=== PATIENT | female | born 1950 | race Hispanic/Latino ===

== ENCOUNTER 2018-07-08 17:48 | Emergency (ER) | payer BC, OTHER ==
[~2018-07-08] VITALS: Ht 154.9 cm; Wt 101.6 kg
[~2018-07-08 17:48] MED LIST: ASPIR 8181 MG PO; CRESTOR10 MG PO; LANTUS100 UNITS/ SQ; LEVOTHYROXINE25 MCG PO; LISINOPRIL2.5 MG PO; LISINOPRIL20 MG PO; METFORMIN HCL1000 MG PO; METOPROLOL SUCC25 MG PO; NOVOLIN 70100 UNITS/ SQ; PANTOPRAZOLE SO40 MG PO; ROPINIROLE HC0.25 MG; SYNTHROID125 MCG PO
--- OUTSIDE RECORDS SUMMARY | 2018-07-08 17:51 | XMS REPORT | Clinical Summary ---
Author [facility] Address Unknown Phone Unavailable Care Team Providers Care Art Therapist Name Role Phone Rochelle Ventura [facility] PCP Allergies Comments Active Allergy Reactions Severity Noted Date cream Thimerosal Rash Low 07/30/2012 Cream. Please note: patient has tolerated steroid shots before (solumedrol and betamethasone) Tixocortol Pivalate Rash Low 07/30/2012 Medications End Date Status Medication Sig Dispensed Refills Start Date Active insulin glargine (LANTUS) Inject 50 0 100 unit/mL injection Units subcutaneousl y nightly. Use as directed Active metFORMIN (FORTAMET) 1000 Take 1,000 mg 0 MG (OSM) 24 hr tablet by mouth 2 (two) times daily with breakfast and dinner. Active ACCU-CHEK SMARTVIEW Strp 0 4 Active ACCU-CHEK FASTCLIX Misc 0 4 Active insulin aspart (NOVOLOG) Inject 15 0 100 unit/mL InPn Units subcutaneousl y daily before lunch. Active furosemide (LASIX) 20 MG Take 1 tablet 30 tablet 3 tabletIndications: (20 mg total) 5 Bilateral edema of lower by mouth 2 extremity (two) times daily. Active insulin pen needles (BD Use as 100 each 0 ULTRA-FINE MAURICIO) 4 mm x directed. 6 32 G Dispense as written, do not substitute. Brand medically necessary. . Active SYNTHROID 125 mcg tablet TAKE 1 TABLET 90 tablet 0 DAILY 6 Active CRESTOR 5 mg tablet TAKE 1 TABLET 90 tablet 0 DAILY 6 Active metoprolol (TOPROL-XL) 25 TAKE 1 TABLET 90 tablet 3 MG 24 hr tablet DAILY 6 Active lisinopril-hydrochlorothi TAKE 1 TABLET 30 tablet 0 azide DAILY 6 (PRINZIDE,ZESTORETIC) 20-12.5 mg per tablet Active aspirin 81 MG EC tablet Take 81 mg by 0 mouth daily. Active iron, carbonyl (FEOSOL) Take by 0 45 mg Tab tablet mouth. Active cholestyramine sugar-free Take 1 packet 60 packet 11 (PREVALITE) 4 gram PwPk by mouth 2 7 packet (two) times daily. Active Problems Problem Noted Date Lumbar back pain with radiculopathy affecting right lower extremity 02/26/2017 Sacroiliitis 02/22/2016 Spondylolisthesis, lumbar region 02/22/2016 Antiphospholipid antibody positive 10/04/2015 Overview: Per Dr. Kemp - recommends to get prophylatic anticoagulation for prolonged immobiliaztion and or post op Essential hypertension 08/28/2015 Restless leg 08/28/2015 Hypothyroidism 08/28/2015 Overview: UPDATED BY ICD10 SNOMED/IMO UPDATES Gastroesophageal reflux disease without esophagitis 08/28/2015 Iron deficiency anemia 08/28/2015 Leg swelling 03/14/2015 Bilateral edema of lower extremity 03/14/2015 Diabetes (J. Figueroa) 12/09/2014 Diabetic peripheral neuropathy associated with type 2 diabetes mellitus 10/21/2013 Status post lumbar surgery 10/21/2013 Lumbar disc disease with radiculopathy 07/07/2013 BMI 40.0-44.9, adult 05/06/2013 S/P cholecystectomy Sleep apnea Overview: on CPAP, last sleep apnea test in 2002. Encounters Care Team Description Date Type Specialty Lisandra Ragland MD Type 2 diabetes mellitus with hyperglycemia, unspecified whether terminal operations supervisor insulin use (HCC) (Primary Dx); Mixed hyperlipidemia; Iatrogenic hypothyroidism; Edema, unspecified type; Obesity, unspecified classification, unspecified obesity type, unspecified whether serious comorbidity present; Other fatigue; Screening for osteoporosis 12/01/2017 Orders Only Lab after 07/07/2017 Immunizations Name Dates Previously Given Next Due Influenza TIV (IM) 01/17/2015 Pneumococcal 12/10/2011 Polysaccharide (Pneumovax) SHINGLES VARICELLA 12/09/2014 (ZOSTAVAX) ZOSTER Tdap 12/09/2014 Family History Medical History Relation Name Comments Breast cancer Mother Diabetes Mother Heart disease Mother Hyperlipidemia Sister Relation Name Status Comments Father Mother Sister Social History Date Tobacco Use Types Packs/Day Years Used Never Smoker Smokeless Tobacco: Never Used Alcohol Use Drinks/Week oz/Week Comments No Sex Assigned at Date Recorded Not on file Industry Job Start Date Occupation Not on file Not on file Not on file Travel End Travel History Travel Start No recent travel history available. Last Filed Vital Signs Not on file Plan of Treatment Health Maintenance Due Date Last Done Comments INFLUENZA VACCINE 02/16/2018 Implants Device Identifier Shelf Expiration Date Model / Serial / Lot Implanted Type Area Manufactur er 12/30/2014 [id number] / [id number] / Dbx Putty,5cc Aseptic - Bone N/A: Spine [id number] Lumbar Implanted: Qty: 1 on 07/07/2013 by Josué Matos MD 07/17/2015 [id number] / / [id number] Sealant,Floseal Hemostatic Matrix Cement/Emigdio N/A: Spine 10ml - [id number] ler/Adhesi Lumbar Implanted: Qty: 1 on 07/07/2013 by Josué Alberto MD [id number] / / [id number] Screw, Cortical Cancellous Fracture/F N/A: Spine Multiaxial 5.5x45mm Cocr Solera - ixation Lumbar [id number] Implanted: Qty: 4 on 07/07/2013 by Josué Matos MD [id number] / / [id number] Set Screw,Breakoff 4.75mm Tit Fracture/F N/A: Spine Sextant - [id number] ixation Lumbar Implanted: Qty: 2 on 07/07/2013 by Josué Matos MD [id number] / / [id number] Amadou, Spinal 4.83h88gn Cocr Sextant Spine N/A: Spine - [id number] Lumbar Implanted: Qty: 1 on 07/07/2013 by Josué Matos MD 08/24/2018 [id number] / / [id number] Cage,Vertebral Interbody Peek Spine N/A: Spine Capstone Verte-Stack [id number] - Lumbar [id number] Implanted: Qty: 1 on 07/07/2013 by Josué Matos MD [id number] / / [id number] Amadou, Sextant, 30mm X 1 N/A: Spine Implanted: Qty: 1 on 07/07/2013 by Josué Harrison MD Procedures Comments Procedure Name Priority Date/Time Associated Diagnosis T3 Routine 12/01/2017 Type 2 diabetes mellitus 8:15 AM CDT with hyperglycemia, unspecified whether long-term insulin use (HCC) Mixed hyperlipidemia Iatrogenic hypothyroidism Edema, unspecified type Obesity, unspecified classification, unspecified obesity type, unspecified whether serious comorbidity present Other fatigue Screening for osteoporosis T4, FREE Routine 12/01/2017 Type 2 diabetes mellitus 8:15 AM CDT with hyperglycemia, unspecified whether terminal operations supervisor insulin use (HCC) Mixed hyperlipidemia Iatrogenic hypothyroidism Edema, unspecified type Obesity, unspecified classification, unspecified obesity type, unspecified whether serious comorbidity present Other fatigue Screening for osteoporosis TSH Routine 12/01/2017 Type 2 diabetes mellitus 8:15 AM CDT with hyperglycemia, unspecified whether terminal operations supervisor insulin use (HCC) Mixed hyperlipidemia Iatrogenic hypothyroidism Edema, unspecified type Obesity, unspecified classification, unspecified obesity type, unspecified whether serious comorbidity present Other fatigue Screening for osteoporosis after 07/07/2017 Results * T3 (12/01/2017 8:15 AM CDT) T3, Total 65 48 - 159 ng/dL [facility] Specimen Blood Performing Organization Address City/[facility] [place] [address] [facility] * TSH (12/01/2017 8:15 AM CDT) TSH 0.23 (L) 0.35 - 4.94 uIU/mL [facility] Specimen Blood Performing Organization Address City/[facility]/Zipcode Phone Number [address] [address] [facility] * T4, free (12/01/2017 8:15 AM CDT) Free T4 1.03 0.70 - 1.48 ng/dL [facility] Specimen Blood Performing Organization Address City/[facility]/Zipcode Phone Number [facility] [address] [place] [address] [facility] after 07/07/2017 Insurance Payer Benefit Subscriber ID Type Phone Address Plan / Group CIGNA - [place]GD CARE CIGNA xxxxxxxxxxx HMO/POS HMO/POS/OP EN ACCESS CIG[employer] - [place] CARE CIGNA PPO xxxxxxxxxxx PPO Advance Directives For more information, please contact: [facility] [address] [place], [place] [id number] Date Inactivated Comments Code Status Date Activated 03/01/2017 3:25 PM Full Code 02/26/2017 11:35 PM This code status was determined by: Patient 02/22/2016 9:45 AM Full Code 02/22/2016 5:57 AM This code status was determined by: Patient 07/11/2013 4:15 PM All possible means of support including;cardiac massage, mechanical ventilation, and defibrillation will be used to support life. Code ONE 07/07/2013 9:02 AM
--- OUTSIDE RECORDS SUMMARY | 2018-07-08 17:51 | XMS REPORT ---
Author Author [facility] Address Unknown Phone Unavailable Care Team Providers Care Lining Caser Name Role Phone KHRIS, PAT MATTHEWSINA Unavailable Unavailable Karli JERNIGAN Unavailable Unavailable JOHN LIU Unavailable Unavailable TUNDE ROB Unavailable Unavailable Kamaljit DEE Unavailable Unavailable Problems This patient has no known problems. Allergies, Adverse Reactions, Alerts This patient has no known allergies or adverse reactions. Medications This patient has no known medications. Results Test Description Test Time Test Comments Text Results Atomic Results Result Comments TSH 2017-12-01 12:03:00 THYROID STIMULATING HORMONE (BEAKER) (test tdsv=185) 0.23 uIU/mL 0.35-4.94 T4, [id number] 12:01:00* Test Item Value Reference Range Comments FREE T4 (BEAKER) (test cvyd=617) 1.03 ng/dL 0.70-1.48 [id number] 12:01:00* Test Item Value Reference Range Comments T3 TOTAL (BEAKER) (test yort=203) 65 ng/dL 48-159 MR, SPINE, THORACIC, WITHOUT [id number] 11:02:00FINAL REPORT MRI thoracic spine without contrast 05/01/2017 at 1048. CLINICAL HISTORY: Thoracic spine pain, fall. TECHNIQUE: Noncontrast MRI of the thoracic spine was performed, utilizing sagittal T1, T2, STIR, axial T1 and T2-weighted sequences. COMPARISON: 07/16/2012. FINDINGS: Alignment is satisfactory. There is no fracture or subluxation. Bone marrow signal intensity is unremarkable. The spinal cord is normal in size and signal intensity. The spinal canal is of normal diameter. There are mild degenerative changes involving the i ntervertebral disks and facet joints, without central canal or foraminal stenosi s. The paraspinal soft tissue is unremarkable. IMPRESSION: 1. No fracture or mal alignment.2. Mild chronic degenerative changes, without central canal or foramin al compromise. Signed: Abel Jones Verified Date/Time: 05/01/2017 11:02:16 Reading Location: [facility] C013V Neuro Reading Room Electronically sig lupe by: ABEL JONES M.D. on 05/01/2017 11:02 AM POCT-GLUCOSE METER 2017-04-15 08:06:00* Test Item Value Reference Range Comments POC-GLUCOSE METER (BEAKER) (test zljr=1007) 93 mg/dL 70-110 TESTED AT [facility] [address], LEAD NUCLEAR MEDICINE TECHNOLOGIST IN OR/30 MINUTE [id number] 16:42:00Reason for exam:-> L5,S1 transforaminal epidural injectionFINAL REPORT Fluoroscopic images were acquired for procedural assistance. Fluoroscopy time 0.5 minutes. Fluoroscopic images 3. Fluoroscopic guidance for lumbar transforaminal epidural injections. Because images were not submitted for interpretation, see separate report by the referring physician for clinical details and imaging interpretation. Signed: Edwar Lomax Verified Date/Time: 03/28/2017 16:42:00 Reading Location: [address] Radiology Reading Room Electronically signed by: EDWAR LOMAX M.D. on 04:42 PM POCT-GLUCOSE [id number] 07:38:00* Test Item Value Reference Range Comments POC-GLUCOSE METER (BEAKER) (test orjx=2601) 104 mg/dL 70-110 TESTED AT [facility] [address] [facility] [address] RAD, BONE DENSITY [id number] 14:46:00Reason for Exam:->e11.65Reason for Exam:->z13.820[facility] Mineral Density Date: March 05, 2017 Comparison: March 02, 2015 Clinical History: Osteoporosis Screening Report: Bone Mineral Density Measurement: Lumbar Spine: 1.595 gm/hq6Gpza Femoral Neck: 0.934 gm/cm2 Standard Deviation as compared to the young adult population (T -score) Lumbar Spine: 3.5 Mean Femoral Neck: -0.7 Standard Deviation as compared to the age matched controls (Z-score) Lumbar Spine: 4.7Mean Femoral Neck: 0.5 These findings are consistent with a normal bone mineral density of the lumbar spine. There is no increased risk of an osteoporotic fracture of the lumbar spine as compared to the young adult population. These findings are consistent with a normal bone mineral density of the femoral neck . There is no increased risk of an osteoporotic fracture of the femoral neck as compared to the young adult [facility]. Comment: Computer printout from the exam will follow this report.Postope rative changes are visualized with pedicle screws overlying the lower lumbar spi ne. Signed: Zuleyka Hinojosa MDReport Verified Date/Time: 03/05/2017 14:46:32 [place] Location: [address] Radiology Reading Room -GLUCOSE [id number] 08:03:00* Test Item Value Reference Range Comments POC-GLUCOSE METER (BEAKER) (test kyfu=5162) 110 mg/dL 70-110 TESTED AT [address] [address] POCT-GLUCOSE [id number] 21:00:00* Test Item Value Reference Range Comments POC-GLUCOSE METER (BEAKER) (test kiem=7629) 133 mg/dL 70-110 TESTED AT [address] [address] POCT-GLUCOSE [id number] 18:11:00* Test Item Value Reference Range Comments POC-GLUCOSE METER (BEAKER) (test tfop=1562) 277 mg/dL 70-110 TESTED AT [address] [address] POCT-GLUCOSE [id number] 13:24:00* Test Item Value Reference Range Comments POC-GLUCOSE METER (BEAKER) (test qrfl=3686) 148 mg/dL 70-110 TESTED AT [address] [address] POCT-GLUCOSE [id number] 07:41:00* Test Item Value Reference Range Comments POC-GLUCOSE METER (BEAKER) (test spjl=4936) 123 mg/dL 70-110 TESTED AT [address] [address] BASIC METABOLIC [id number] 04:58:00* Test Item Value Reference Range Comments SODIUM (BEAKER) (test ppwx=873) 139 meq/L 136-145 POTASSIUM (BEAKER) (test uxzx=772) 4.1 meq/L 3.5-5.1 CHLORIDE (BEAKER) (test gali=737) 105 meq/L 98-107 CO2 (BEAKER) (test oxif=038) 26 meq/L 22-29 BLOOD UREA NITROGEN (BEAKER) (test oixv=766) 43 mg/dL 7-21 CREATININE (BEAKER) (test blpq=255) 0.87 mg/dL 0.57-1.25 GLUCOSE RANDOM (BEAKER) (test hyan=964) 121 mg/dL 70-105 CALCIUM (BEAKER) (test upqw=685) 8.7 mg/dL 8.4-10.2 EGFR (BEAKER) (test bvao=1098) 65 mL/min/1.73 sq m ESTIMATED GFR IS NOT ACCURATE CREATININE CLEARANCE IN PREDICTING GLOMERULAR FILTRATION RATE. ESTIMATED GFR IS NOT APPLICABLE FOR DIALYSIS PATIENTS. 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 The alignment is anatomic. No defini te evidence of acute cortical interruption. However, there is gentle bowing of t he proximal diaphysis of the fibula on the lateral view. Chronicity and clinical significance indeterminate. Recommend clinical correlation with patient's point of maximum tenderness and mechanism of injury as an acute process is difficult to exclude. Subtle soft tissue fullness of the suprapatellar space may reflect a rtifact or a knee effusion. Signed: Terry Saavedra MDReport Verified Date/Time: 02/27/2017 20:59:28 Reading Location: [address] Reading Room , HIP, 2 VIEWS, [id number] 20:56:00Reason for exam:->pain post fallFINAL REPORT EXAMINATION: RIGHT HIP SERIES, 2 VIEWS INDICATION: PAIN, FALL IMPRESSION: Moderate degenerative changes are noted at the right sacroiliac joint and the right hip. Incompletely visualized orthopedic fixation hardware is noted in the lower lumbar spine. No definite evidence of acute fracture or dislocation. If occult injury is suspected, consider CT for further evaluation. Signed: Terry Saavedra Verified Date/Time: 02/27/2017 20:56:09 Reading Location: [address] Reading Room -GLUCOSE [id number] 20:54:00 * Test Item Value Reference Range Comments POC-GLUCOSE METER (BEAKER) (test tdre=7564) 258 mg/dL 70-110 TESTED AT [address] [address] POCT-GLUCOSE [id number] 17:39:00* Test Item Value Reference Range Comments POC-GLUCOSE METER (BEAKER) (test tbqj=0523) 182 mg/dL 70-110 TESTED AT [address] [address] HEMOGLOBIN [id number] 12:54:00* Test Item Value Reference Range Comments HEMOGLOBIN A1C (BEAKER) (test aogo=585) 6.5 % 4.3-6.1 POCT-GLUCOSE [id number] 12:37:00* Test Item Value Reference Range Comments POC-GLUCOSE METER (BEAKER) (test eyrn=2340) 228 mg/dL 70-110 TESTED AT [address] [address] POCT-GLUCOSE [id number] 08:02:00* Test Item Value Reference Range Comments POC-GLUCOSE METER (BEAKER) (test buec=3460) 213 mg/dL 70-110 TESTED AT [address] [address] POCT-GLUCOSE [id number] 01:26:00* Test Item Value Reference Range Comments POC-GLUCOSE METER (BEAKER) (test zwvf=6635) 273 mg/dL 70-110 TESTED AT [place] [id number] URINALYSIS W/ [id number] 23:27:00* Test Item Value Reference Range Comments COLOR (BEAKER) (test xsvr=312) Yellow CLARITY (BEAKER) (test hsho=101) Hazy SPECIFIC GRAVITY UA (BEAKER) (test sbmo=000) 1.028 1.001-1.035 PH UA (BEAKER) (test bbeo=980) 5.5 5.0-8.0 PROTEIN UA (BEAKER) (test kgbc=546) 30 mg/dL Negative GLUCOSE UA (BEAKER) (test plgu=064) 150 mg/dL Negative KETONES UA (BEAKER) (test eoxf=943) 10 mg/dL Negative BILIRUBIN UA (BEAKER) (test vfly=720) Negative Negative BLOOD UA (BEAKER) (test hark=101) Negative Negative NITRITE UA (BEAKER) (test rqwr=261) Negative Negative LEUKOCYTE ESTERASE UA (BEAKER) (test dhbm=147) Negative Negative UROBILINOGEN UA (BEAKER) (test yzfy=937) 0.2 mg/dL 0.2-1.0 RBC UA (BEAKER) (test qxqu=244) 0 /HPF WBC UA (BEAKER) (test ukzk=364) 1 /HPF MUCUS (BEAKER) (test hwps=8379) Many SQUAMOUS EPITHELIAL (BEAKER) (test ustd=756) 2 /HPF SOURCE(BEAKER) (test dwba=5180) Urine, Voided MR, SPINE, LUMBAR, [id number] 11:55:00FINAL REPORT MR Lumbar spine with and without contrast INDICATION: Low back pain, rapidly progressive neurologic deficit. TECHNIQUE: MRI of the lumbar spine utilizing the following sequences: Sagittal T1, T2, STIR; axial T1 and T2, postcontrast sagittal and axial T1 with fat suppression. COMPARISON: CT lumbar spine 08/15/2016, MRI lumbar spine 11/08/2013 FINDINGS:There is transitional lumbosacral anatomy. For consistency, numbering is based on the prior studies. There has been L4-5 posterior spinal fusion with rods and screws. An anterior intervertebral graft is present at L4-5. There are resultant susceptibility artifact. There is grade 1 anterolisthesis at L5-S1, stable since the prior CT, but new since 2013. There are degenerative endplate signal changes. There is m ild left convex spine curvature. Vertebral heights are otherwise maintained. The conus medullaris is unremarkable and terminates at L1-2. T12-L1: Unremarkable L 1-2: Mild facet arthropathy. No significant canal or foraminal stenosis. L2-3: L eft foraminal annular tear and broad based disc protrusion. Bilateral facet arth ropathy with myelomatous thickening. No significant canal or foraminal stenosis. . L3-4: Disc bulge, broad-based right foraminal disc protrusion, bilateral facet arthropathy, ligamentous thickening, and small joint effusions. Mild canal sten osis. Mild to moderate right and mild left foraminal stenosis. L4-5: Status post left laminectomy and fusion with left lateral recess and foraminal granulation changes but no significant canal stenosis. Mild to moderate left and mild right foraminal stenosis. L5-S1: Disc degeneration with bulge extending into the colin inal regions, endplate osteophytes, facet arthropathy, and ligamentous thickenin g. Severe bilateral foraminal stenosis with exiting nerve root impingement. No s ignificant canal stenosis. There is colonic diverticulosis. There is paraspinal muscle deconditioning. IMPRESSION: 1. Transitional lumbosacral anatomy. 2. Prior L4-5 spinal fusion with granulation changes. 3. Left foraminal annular tear and broad based disc protrusion at L2-3. Additional degenerative changes with mild multifactorial L3-4 spinal canal stenosis. 4. Severe bilateral L5-S1 foraminal s tenoses, with other lesser foraminal stenoses as discussed. Advise correlation w ith radiculopathic symptoms. 5. Colonic diverticulosis. Signed: Florentino Paredes MDReport Verified Date/Time: 02/26/2017 11:55:27 Reading Location: [address] Neuro Reading Room Electronically signed by: Belinda MONZON 02/26/2017 11:55 AM BASIC METABOLIC [id number] 10:35:00* Test Item Value Reference Range Comments SODIUM (BEAKER) (test lfmp=007) 141 meq/L 136-145 POTASSIUM (BEAKER) (test qkxe=072) 4.2 meq/L 3.5-5.1 CHLORIDE (BEAKER) (test nepl=848) 104 meq/L 98-107 CO2 (BEAKER) (test utsv=548) 27 meq/L 22-29 BLOOD UREA NITROGEN (BEAKER) (test esrg=627) 30 mg/dL 7-21 CREATININE (BEAKER) (test syvq=800) 0.81 mg/dL 0.57-1.25 GLUCOSE RANDOM (BEAKER) (test jpyp=295) 112 mg/dL 70-105 CALCIUM (BEAKER) (test oswo=055) 9.7 mg/dL 8.4-10.2 EGFR (BEAKER) (test vkiv=7076) 71 mL/min/1.73 sq m ESTIMATED GFR IS NOT ACCURATE CREATININE CLEARANCE IN PREDICTING GLOMERULAR FILTRATION RATE. ESTIMATED GFR IS NOT APPLICABLE FOR DIALYSIS PATIENTS. CBC W/PLT COUNT & AUTO [id number] 10:03:00* Test Item Value Reference Range Comments WHITE BLOOD CELL COUNT (BEAKER) (test ozhk=419) 7.0 K/ L 3.5-10.5 RED BLOOD CELL COUNT (BEAKER) (test aqfe=317) 4.46 M/ L 3.93-5.22 HEMOGLOBIN (BEAKER) (test kixo=970) 13.1 GM/DL 11.2-15.7 HEMATOCRIT (BEAKER) (test ocdh=641) 40.1 % 34.1-44.9 MEAN CORPUSCULAR VOLUME (BEAKER) (test hylm=458) 89.9 fL 79.4-94.8 MEAN CORPUSCULAR HEMOGLOBIN (BEAKER) (test hdpa=670) 29.4 pg 25.6-32.2 MEAN CORPUSCULAR HEMOGLOBIN CONC (BEAKER) (test jffm=575) 32.7 GM/DL 32.2-35.5 RED CELL DISTRIBUTION WIDTH (BEAKER) (test aodw=266) 13.2 % 11.7-14.4 PLATELET COUNT (BEAKER) (test vxmc=443) 173 K/CU MM 150-450 MEAN PLATELET VOLUME (BEAKER) (test bgwu=113) 10.2 fL 9.4-12.3 NUCLEATED RED BLOOD CELLS (BEAKER) (test tokt=223) 0 /100 WBC 0-0 NEUTROPHILS RELATIVE PERCENT (BEAKER) (test nyka=177) 59 % LYMPHOCYTES RELATIVE PERCENT (BEAKER) (test vbgf=570) 33 % MONOCYTES RELATIVE PERCENT (BEAKER) (test yhvr=369) 7 % EOSINOPHILS RELATIVE PERCENT (BEAKER) (test tymw=309) 1 % BASOPHILS RELATIVE PERCENT (BEAKER) (test xjbv=227) 0 % NEUTROPHILS ABSOLUTE COUNT (BEAKER) (test qhmz=567) 4.10 K/ L 1.56-6.13 LYMPHOCYTES ABSOLUTE COUNT (BEAKER) (test shad=656) 2.28 K/ L 1.18-3.74 MONOCYTES ABSOLUTE COUNT (BEAKER) (test ouyi=556) 0.49 K/ L 0.24-0.36 EOSINOPHILS ABSOLUTE COUNT (BEAKER) (test ntww=291) 0.10 K/ L 0.04-0.36 BASOPHILS ABSOLUTE COUNT (BEAKER) (test yxij=409) 0.03 K/ L 0.01-0.08 IMMATURE GRANULOCYTES-RELATIVE PERCENT (BEAKER) (test ytjk=7551) 0 % 0-1 RAPID [id number] 13:37:00* Test Item Value Reference Range Comments RAPID CKMB (BEAKER) (test aqwz=1796) 1.0 ng/mL 0.0-4.3 RAPID TROPONIN [id number] 13:37:00* Test Item Value Reference Range Comments RAPID TROPONIN I (BEAKER) (test msvh=7979) < ng/mL <0.05 BASIC METABOLIC [id number] 13:26:00* Test Item Value Reference Range Comments SODIUM (BEAKER) (test mxjq=111) 144 meq/L 135-148 POTASSIUM (BEAKER) (test koge=334) 4.9 meq/L 3.6-5.5 CHLORIDE (BEAKER) (test lnfg=067) 102 meq/L 98-106 CO2 (BEAKER) (test yxqs=446) 29 meq/L 24-32 BLOOD UREA NITROGEN (BEAKER) (test risr=370) 26 mg/dL 10-26 CREATININE (BEAKER) (test brhc=131) 0.73 mg/dL 0.50-1.20 GLUCOSE RANDOM (BEAKER) (test qkif=315) 160 mg/dL 70-110 CALCIUM (BEAKER) (test gumh=970) 9.7 mg/dL 8.5-10.5 EGFR (BEAKER) (test rbgf=0537) 80 mL/min/1.73 sq m ESTIMATED GFR IS NOT ACCURATE CREATININE CLEARANCE IN PREDICTING GLOMERULAR FILTRATION RATE. ESTIMATED GFR IS NOT APPLICABLE FOR DIALYSIS PATIENTS. CBC W/PLT COUNT & AUTO [id number] 13:20:00* Test Item Value Reference Range Comments WHITE BLOOD CELL COUNT (BEAKER) (test osui=039) 7.0 10e3/ L 4.0-10.0 RED BLOOD CELL COUNT (BEAKER) (test nmej=426) 4.41 10e6/ L 4.00-5.00 HEMOGLOBIN (BEAKER) (test syab=174) 13.1 g/dL 12.0-15.0 HEMATOCRIT (BEAKER) (test shio=401) 39.4 % 36.0-45.0 MEAN CORPUSCULAR VOLUME (BEAKER) (test hptz=540) 89.3 fL 82.0-99.0 MEAN CORPUSCULAR HEMOGLOBIN (BEAKER) (test iich=428) 29.7 pg 27.0-33.0 MEAN CORPUSCULAR HEMOGLOBIN CONC (BEAKER) (test bslk=081) 33.3 g/dL 32.0-36.0 RED CELL DISTRIBUTION WIDTH (BEAKER) (test gvfh=077) 11.4 % 10.3-14.2 PLATELET COUNT (BEAKER) (test pzox=696) 188 10e3/ L 150-430 MEAN PLATELET VOLUME (BEAKER) (test miib=850) 7.6 fL 6.5-10.5 NEUTROPHILS RELATIVE PERCENT (BEAKER) (test hsjs=955) 59 % LYMPHOCYTES RELATIVE PERCENT (BEAKER) (test wfbl=895) 33 % MONOCYTES RELATIVE PERCENT (BEAKER) (test ontr=655) 7 % EOSINOPHILS RELATIVE PERCENT (BEAKER) (test iywq=401) 2 % BASOPHILS RELATIVE PERCENT (BEAKER) (test doko=429) 0 % NEUTROPHILS ABSOLUTE COUNT (BEAKER) (test hbvu=996) 4.09 10e3/ L 1.80-8.00 LYMPHOCYTES ABSOLUTE COUNT (BEAKER) (test njmx=902) 2.26 10e3/ L 1.48-4.50 MONOCYTES ABSOLUTE COUNT (BEAKER) (test mpwc=589) 0.47 10e3/ L 0.00-1.30 EOSINOPHILS ABSOLUTE COUNT (BEAKER) (test jzcu=581) 0.10 10e3/ L 0.00-0.50 BASOPHILS ABSOLUTE COUNT (BEAKER) (test tyyy=829) 0.02 10e3/ L 0.00-0.20
--- OUTSIDE RECORDS SUMMARY | 2018-07-08 17:51 | XMS REPORT | Clinical Summary ---
Author Author Adolph Protestant Organization [facility] Address Unknown Phone Unavailable Care Team Providers Care Perfusionist Name Role Phone Rochelle Ventura MD PCP Allergies Comments Active Allergy Reactions Severity Noted Date Thimerosal 01/17/2016 Tixocortol Pivalate 01/17/2016 Medications End Date Status Medication Sig Dispensed Refills Start Date Active lisinopril-hydrochlorothi 1 tablet. 0 azide (PRINZIDE,ZESTORETIC) 20-12.5 mg per tablet Active rosuvastatin (CRESTOR) 5 1 TABLET 0 MG tablet DAILY 1 Active metFORMIN (GLUCOPHAGE) metformin ER 0 500 MG tablet 500 mg tablet,extend ed release 24 hr Active pen needle, diabetic (BD BD Insulin 0 INSULIN PEN NEEDLE UF Pen Needle UF MINI) 31 gauge x 3/16" Mini 31 gauge needle x 3/16" Active esomeprazole (NexIUM) 40 esomeprazole 0 MG capsule magnesium 40 mg capsule,delay ed release Active meclizine (ANTIVERT) 25 meclizine 25 0 mg tablet mg tablet Active liraglutide (VICTOZA Inject 1.8 mg 0 2-JAXSON) 0.6 mg/0.1 mL (18 under the 4 mg/3 mL) pen injector skin. Active levothyroxine (SYNTHROID) TAKE 1 TABLET 0 125 MCG tablet DAILY 6 Active lidocaine (LIDODERM) 5 APPLY ONE 30 patch 0 %Indications: PATCH 7 Spondylolisthesis of TOPICALLY lumbar region DAILY. REMOVE AND DISCARD PATCH WITHIN 12 HOURS OR DIRECTED 04/30/2018 Discontinued metoprolol succinate XL metoprolol 0 (TOPROL-XL) 25 MG 24 hr succinate ER tablet 25 mg tablet,extend ed release 24 hr 04/30/2018 Discontinued insulin ASPART (NovoLOG Novolog 0 Flexpen) 100 unit/mL Flexpen 100 insulin pen unit/mL subcutaneous 04/30/2018 Discontinued ioeazkef-kqcfdpulg-fyskks naproxen 500 0 l 500 mg -0.0375 %-5 % mg tablet combo pack, tablet and patch 04/30/2018 Discontinued pregabalin (LYRICA) 50 MG Lyrica 50 mg 0 capsule capsule 04/30/2018 Discontinued rOPINIRole (REQUIP) 0.5 ropinirole 0 MG tablet 0.5 mg tablet 04/30/2018 Discontinued insulin GLARGINE (LANTUS) Inject 50 0 100 unit/mL injection Units under the skin. 04/30/2018 Discontinued FERRALET 90 DUAL-IRON 0 DELIVERY 90-1-12-50 6 ht-my-prm-mg tablet 06/24/2018 meloxicam (MOBIC) 15 mg Take 1 tablet 30 tablet 3 tablet (15 mg total) 9 by mouth daily for 30 days. Take with food Active Problems Problem Noted Date Bilateral carpal tunnel syndrome 04/30/2018 De Quervain's tenosynovitis, right 04/30/2018 Sleep apnea Encounters Care Team Description Date Type Specialty Yogesh Beard MD De Quervain's tenosynovitis, right (Primary Dx); Bilateral carpal tunnel syndrome 05/25/2018 Office Visit Orthopedic Surgery Yogesh Beard MD Bilateral carpal tunnel syndrome (Primary Dx); De Quervain's tenosynovitis, right 04/30/2018 Office Visit Orthopedic Surgery after 07/07/2017 Social History Date Tobacco Use Types Packs/Day Years Used Never Smoker Sex Assigned at Date Recorded Not on file Industry Job Start Date Occupation Not on file Not on file Not on file Travel End Travel History Travel Start No recent travel history available. Last Filed Vital Signs Not on file Plan of Treatment Health Maintenance Due Date Last Done Comments BREAST CANCER SCREENING 12/24/2001 COLON CANCER SCREENING 12/24/2001 SHINGLES VACCINES ( of 12/24/2001 2) INFLUENZA VACCINE 12/17/2017 PNEUMOCOCCAL Completed 06/13/2011 POLYSACCHARIDE VACCINE AGE 65 AND OVER PNEUMOCOCCAL-13 Completed 12/03/2017 Procedures Comments Procedure Name Priority Date/Time Associated Diagnosis [place] INJECT TENDON Routine 05/25/2018 De Quervain's SHEATH/LIGAMENT 4:00 PM CAREER SPECIALIST tenosynovitis, right EMG Routine 05/06/2018 Bilateral carpal tunnel 1:52 PM CAREER SPECIALIST syndrome XR HANDS 3 VW BILATERAL Routine 04/30/2018 Bilateral hand pain 3:29 PM CAREER SPECIALIST after 07/07/2017 Results * Hand/Upper Extremity Injection/Arthrocentesis: R extensor compartment 1 (05/25/2018 4:00 PM CAREER SPECIALIST) Narrative Performed At Yogesh Beard MD 05/25/20185:10 PM Hand/Upper Extremity Injection/Arthrocentesis: R extensor compartment 1 Date/Time: 05/25/2018 5:09 PM Consent given by: patient Site marked: site marked Timeout: Immediately prior to procedure a time out was called to verify the correct patient, procedure, equipment, computer systems support specialist and site/side marked as required Supporting Documentation Indications: therapeutic Procedure Details Condition: de Quervain's tenosynovitis Site: R extensor compartment 1 Preparation: Patient was prepped and draped in the usual sterile fashion Right side: Needle size: 27 G Approach: medial Patient tolerance: patient tolerated the procedure well with no immediate complications Right Extensor Compartment 1 Medications administered: 3 mg betamethasone acetate & sodium phosphate 6 mg/mL; 0.5 mL lidocaine 10 mg/mL (1 %) Injection Type: tendon sheath Platelet Rich Plasma Used: no PRP Used Fluoroscopic Needle Guidance Used: no fluoroscopic needle guidance * EMG general request (05/06/2018 1:52 PM CAREER SPECIALIST) Impressions Performed At The patient has throbbing and discomfort of the right thumb joint with repetitive use of her hands.She has a history of a carpal tunnel release bilaterally 20 years ago.She comes in for an EMG study of both arms. 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 Brandon Cifuentes Department of Neurology [facility] [address] [facility] [address] [place], [place] Office: [phone] Narrative Performed At NERVE CONDUCTION AND ELECTROMYOGRAPHY REPORT [facility]th [facility]; [place], [place] [address]; Name: Isabela Bocanegra Date of Procedure: 05/06/18 Sex: female Date of : 1950 Referring Physician: Yogesh Beard MD Ht: 5 foot 2 wt: 150temp: 35.6/34.6 Nerve Conduction(Latencies in msec, Amplitudes uV, Distance cm, Velocity M/Sec) Right Motor Nerves Dist. Lat. Prox lat. D. amp. P. Amp.Dist. Velocity Right Median3.77.37.2 6.119.3 53 Right Ulnar (below elb) 2.54.38.3 8.310 57 Right Ulnar (across elb) 6.5 6.813 58 Right Radial2.86.37.4 6.418.9 53 Right Median F Wave 27 Right Ulnar F Wave 26.5 Right Sensory Nerves Dist. Lat. Prox lat. Dist. amp. Prox Amp. Distance Velocity Right Median Palmar 2.6* 308.0 Right Median Digital 3.8 10.3 13.0 Right Ulnar2.7 25 11.0 Right Super. Radial 2.3 34.3 10.0 Left Motor Nerves Dist. Lat. Prox lat. D. amp. P. Amp.Dist. Velocity Left Median3.879.3 8.319 58 Left Ulnar (below elb) 2.84.58.8 8.610.5 63 Left Ulnar (across elb) 6.4 8.313 67 Left Radial2.75.47.6 6.620 62 Left Median F Wave 27 Left Ulnar F Wave 25.5 Left Sensory Nerves Dist. Lat. Prox lat. Dist. amp. Prox Amp. Distance Velocity Left Median Palmar 2.5 * 34 8.0 Left Median Digital 3.4 17 13.0 Left Ulnar2.6 28 11.0 Left Super. Radial 2.4 30 10.0 Electromyography (Motor Unit in mV; H=High; L=Low; P=Polyphasic; NS=Non-specific) Right ArmFibs. Pos. Waves Fasc. PolyphasiaMotor UnitsRecruitment Deltoid wnl wnlwnl wnlwnlwnl Biceps wnl wnlwnl wnlwnlwnl Triceps wnl wnlwnl wnlwnlwnl Brachioradialis wnl wnlwnl wnlwnlwnl lst D. Interosseous wnl wnlwnl wnlwnlwnl Abd. Pollicus b. wnl wnlwnl wnlwnlwnl Left ArmFibs. Pos. Waves Fasc. PolyphasiaMotor UnitsRecruitment Deltoid wnl wnlwnl wnlwnlwnl Biceps wnl wnlwnl wnlwnlwnl Triceps wnl wnlwnl wnlwnlwnl Brachioradialis wnl wnlwnl wnlwnlwnl lst D. 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 Performing Organization Address City/State/Zipcohi Phone Number [facility] [address] [place] [address] after 07/07/2017 Insurance Payer Benefit Subscriber ID Type Phone Address Plan / Group CIGNA CIGNA OPEN xxxxxxxxxxx O ACCESS/NET WORK (Home) [place] [address] Advance Directives Patient has advance care planning documents on file. For more information, olu lee contact: Adolph Tejada [address] [place] [address]
[2018-07-08] MEDS ORDERED: MORPHINE SULFATE 2 MG/ML SYR 1ML IV STA (17:59)
[2018-07-08] MEDS ORDERED: SODIUM CHLORIDE 0.9% 1000ML 1,000 ML IV SCH (18:00)
[2018-07-08] MEDS ORDERED: ONDANSETRON HCL INJ 2MG/ML 2ML 2 MG/ML VIAL IV ONE (18:15)
[2018-07-08] MEDS ORDERED: MORPHINE SULFATE INJ 4 MG/ML INJ 1ML IV ONE (18:15)
[2018-07-08 18:28] LABS: BASOPHILS # (AUTO) 0.1 (0.0-0.1); BASOPHILS % 0.6 % (0.0-1.0); EOSINOPHILS # (AUTO) 0.1 (0.0-0.4); EOSINOPHILS % 1.5 % (0.0-6.0); HEMATOCRIT 40.8 % (34.2-44.1); HEMOGLOBIN 13.8 g/dL (12.0-16.0); LYMPHOCYTES % 31.3 % (18.0-39.1); MEAN CORPUSCULAR HEMOGLOBIN 30.7 pg (28-32); MEAN CORPUSCULAR HGB CONC 33.8 g/dL (31-35); MEAN CORPUSCULAR VOLUME 90.7 fL (81-99); MONOCYTES # (AUTO) 0.7 (0.2-0.8); MONOCYTES % 7.6 % (4.4-11.3); NEUTROPHILS # (AUTO) 5.7 (2.1-6.9); NEUTROPHILS % 58.7 % (38.7-80.0); PLATELET COUNT 186 x10e3/uL (140-360); RED CELL DISTRIBUTION WIDTH 12.6 % (11.7-14.4)
[2018-07-08 18:35] LABS: COLOR,URINE AMBER (YELLOW)
[2018-07-08 18:36] LABS: BILIRUBIN,URINE NEGATIVE (NEGATIVE); CLARITY,URINE TURBID (CLEAR); KETONES,URINE TRACE (NEGATIVE); LEUKOCYTE ESTERASE ,URINE TRACE (NEGATIVE); NITRITE,URINE NEGATIVE (NEGATIVE); PROTEIN,URINE DIPSTICK 2+ (NEGATIVE); URINE UROBILINOGEN 0.2 mg/dL (0.2 - 1)
[2018-07-08 18:49] LABS: WBC,URINE (MAN) 0-5 /HPF (0-5)
[2018-07-08 18:50] LABS: BACTERIA,URINE MANY /HPF; EPITHELIAL CELLS,URINE FEW /LPF; RBC,URINE >50 /HPF (0-5); YEAST,URINE FEW
[2018-07-08 18:52] LABS: ALBUMIN 4.5 g/dL (3.5-5.0); ALBUMIN/GLOBULIN RATIO 1.6 (0.8-2.0); ANION GAP 17.2 mmol/L (8-16); CALCIUM 9.9 mg/dL (8.4-10.2); CREATININE, SERUM 1.15 mg/dL (0.57-1.11); MAGNESIUM 1.9 MG/DL (1.3-2.1); POTASSIUM 4.2 mmol/L (3.5-5.1)
--- NOTE | 2018-07-08 19:28 | NUR ---
RECEIVED BEDSIDE REPORT FROM CARMELA REAL DAY SHIFT NURSE.
--- NOTE | 2018-07-08 19:28 | NUR ---
Bedside rounds completed with Regina CASEY, night order selector nurse.
--- NOTE | 2018-07-08 19:48 | Diagnostic Imaging Report ---
EXAM: CT of the abdomen and pelvis WITHOUT contrast HISTORY: Right flank pain, nausea, COMPARISON: None available. TECHNIQUE: The abdomen and pelvis were scanned utilizing a multidetector helical scanner. Coronal and sagittal reformats are available. PROTOCOL: Renal colic IV CONTRAST: None, which limits sensitivity and specificity of evaluation of the soft tissues and vascular structures. ORAL CONTRAST: None, which limits sensitivity and specificity of evaluation of the bowel. [facility] DOSE: Total DLP: 430.27 mGy*cm Estimated effective dose: (DLP x 0.015 x size factor) Dose modulation, iterative reconstruction, and/or weight based adjustment of the mA/kV was utilized to reduce the radiation dose to as low as reasonably achievable. COMPLICATIONS: None FINDINGS: Beam Burton artifact related to the spine fixation hardware, limits regional evaluation. LOWER THORAX: Unremarkable. HEPATOBILIARY: No definite focal hepatic lesions. No biliary ductal dilatation. Metallic clips in the right upper quadrant of the abdomen are compatible with prior cholecystectomy. SPLEEN: No splenomegaly. PANCREAS: No focal masses or ductal dilatation. ADRENALS: The glands bilaterally appear prominent, but no discrete nodule. KIDNEYS/URETERS: Right: Perinephric fat stranding. Mild hydronephrosis and dilation of the proximal right ureter, the ureter has a curved course within the mid abdomen extending to a punctate calcification (series 3 image 81). The ureter distal to this is not well visualized. Left: No hydronephrosis or stone. PELVIC ORGANS/BLADDER: The urinary bladder is decompressed, which limits evaluation. PERITONEUM / RETROPERITONEUM: No free air or fluid. GI TRACT: Postsurgical changes of the stomach. Scattered colonic diverticuli, without evidence of acute diverticulitis. The appendix appears normal. LYMPH NODES: No pathologically enlarged lymph nodes. VESSELS: Diffuse scattered atherosclerotic vascular calcifications. BONES: Status post posterior fixation of L4-5. Apparent L5 pars interarticularis defects with grade 1 anterolisthesis of L5 on S1. SOFT TISSUES: Ventral midline fat containing hernia without associated inflammatory changes. IMPRESSION: Mild right hydronephrosis and proximal hydroureter, likely secondary to a punctate proximal ureteral stone, 1 to 2 mm. Signed by: Dr. Uriel Pacheco D.O., M.M.M. on 07/08/2018 7:44 PM
[2018-07-08] MEDS ORDERED: KETOROLAC TROMETHAMINE 30 MG/ML VIAL IV ONE (20:30)
[2018-07-08 21:20] VITALS: BP 149/72
== END 2018-07-08 22:07 | disposition home or self-care (01) ==
LOC: ER 17:48
DX: R10.11 Right upper quadrant pain (principal); R11.0 Nausea; N20.1 Calculus of ureter; I10 Essential (primary) hypertension; E11.9 Type 2 diabetes mellitus without complications; E78.5 Hyperlipidemia, unspecified; K21.9 Gastro-esophageal reflux disease without esophagitis; G89.29 Other chronic pain
CPT/HCPCS: 36415; 74176; 80053; 81001; 82150; 83690; 83735; 85025; 99284; J1885; J2270; J2405; J7030

== ENCOUNTER 2018-07-31 18:17 | Emergency (ER) | payer OTHER ==
[~2018-07-31] VITALS: Ht 154.9 cm; Wt 72.6 kg
--- OUTSIDE RECORDS SUMMARY | 2018-07-31 18:19 | XMS REPORT | Clinical Summary ---
Author Author Adolph [facility] Organization [facility] Address Unknown Phone Unavailable Care Team Providers Care Binder And Wrapper Packer Name Role Phone Rochelle Ventura MD PCP [...] 100 insulin pen unit/mL subcutaneous 04/30/2018 Discontinued ceqvdykc-cgflzrebx-sykxdy naproxen 500 0 l 500 mg -0.0375 [...] FERRALET 90 DUAL-IRON 0 DELIVERY 90-1-12-50 6 mu-ms-tfq-mg tablet 06/24/2018 meloxicam (MOBIC) 15 mg Take 1 tablet 30 tablet 3 tablet (15 mg total) 9 by mouth daily for 30 days. Take with food Active Problems Problem Noted Date Bilateral carpal tunnel syndrome 04/30/2018 De Quervain's tenosynovitis, right 04/30/2018 Sleep apnea Encounters Care Team Description Date Type Specialty Shannon Lara MD Arrived 07/27/2018 Hospital Radiology Encounter Shannon Lara MD Nephrolithiasis (Primary Dx) 07/16/2018 Office Visit Urology Shannon Lara MD 07/15/2018 Telephone Urology Shannon Lara MD Nephrolithiasis 07/13/2018 Hospital Radiology Encounter Shannon Lara MD Nephrolithiasis (Primary Dx); Right ureteral stone 07/13/2018 Office Visit Urology Yogesh Beard MD De Quervain's tenosynovitis, right (Primary Dx); Bilateral carpal tunnel syndrome 05/25/2018 Office Visit Orthopedic Surgery Yogesh Beard MD Bilateral carpal tunnel syndrome (Primary Dx); De Quervain's tenosynovitis, right 04/30/2018 Office Visit Orthopedic Surgery after 07/30/2017 Social History Date Tobacco Use Types Packs/Day Years Used Never Smoker Smokeless Tobacco: Never Used Sex Assigned at Date Recorded Not on file Industry Job Start Date Occupation Not on file Not on file Not on file Travel End Travel History Travel Start No recent travel history available. Last Filed Vital Signs Not on file Plan of Treatment Care Team Description Date Type Specialty Shannon Lara MD [address] [facility] [address] [place], [place] [id number] 09/14/2018 Ancillary Urology Procedure Shannon Lara MD [address] [facility] [address] [place], [place] [id number] 09/14/2018 Office Visit Urology Health Maintenance Due Date Last Done Comments BREAST CANCER SCREENING 12/24/2001 COLON CANCER SCREENING 12/24/2001 SHINGLES VACCINES (#1) 12/24/2001 65+ PNEUMOCOCCAL VACCINE 12/24/2016 12/03/2017, 06/13/2011 (2 of 2 - PPSV23) INFLUENZA VACCINE 12/17/2017 PNEUMOCOCCAL Completed 06/13/2011 POLYSACCHARIDE VACCINE AGE 65 AND OVER Procedures Comments Procedure Name Priority Date/Time Associated Diagnosis US RENAL Routine 07/13/2018 Nephrolithiasis 5:05 PM CLAIM MANAGER URINE CULTURE Routine 07/13/2018 Nephrolithiasis 4:06 PM CLAIM MANAGER POC URINALYSIS DIPSTICK Routine 07/13/2018 Nephrolithiasis 4:[address] ABD/PELVIC EXTERNAL Routine 07/08/2018 STUDY 7:23 PM CLAIM MANAGER NE INJECT TENDON Routine 05/25/2018 De Quervain's SHEATH/LIGAMENT 4:00 PM CLAIM MANAGER tenosynovitis, right EMG Routine 05/06/2018 Bilateral carpal tunnel 1:52 PM CLAIM MANAGER syndrome XR HANDS 3 VW BILATERAL Routine 04/30/2018 Bilateral hand pain 3:29 PM CLAIM MANAGER after 07/30/2017 Results * US Renal (07/13/2018 5:05 PM CLAIM MANAGER) Narrative Performed At EXAMINATION:US RENAL [facility] CLINICAL HISTORY:N20.0 Calculus of kidney, Renal cyst COMPARISON:None. IMPRESSION: 1.There is no hydronephrosis. There is mild right pelviectasis. A definite calyceal stone or cyst is not identified. Correlate with CT for further evaluation. 2.Renal cortical echogenicity is within normal limits. 3.Right kidney measures 9.6 x 4.8 x 5.5 cm. 4.Left kidney measures 10.1 x 4.3 x 4 cm. 5.Bladder is unremarkable. [facility]-[id number] Procedure Note Hm Interface, Radiology Results Incoming - 07/13/2018 6:48 PM CLAIM MANAGER EXAMINATION: US RENAL CLINICAL HISTORY: N20.0 Calculus of kidney, Renal cyst COMPARISON: None. IMPRESSION: 1. There is no hydronephrosis. There is mild right pelviectasis. A definite calyceal stone or cyst is not identified. Correlate with CT for further evaluation. 2. Renal cortical echogenicity is within normal limits. 3. Right kidney measures 9.6 x 4.8 x 5.5 cm. 4. Left kidney measures 10.1 x 4.3 x 4 cm. 5. Bladder is unremarkable. [facility]-[id number] Performing Organization Address [facility] Phone Number [facility] [address] [place] [address] * Urine culture (07/13/2018 4:06 PM CLAIM MANAGER) Urine culture No growth [facility] Specimen Urine Narrative Performed At Performed at:01 - [facility] [place] [facility] [address] [place], [place] [id number] Building Rental Manager: Vaughn Wolfe MD, Phone:[phone] Performing Organization Address City/[facility] Phone Number [facility] * POC urinalysis dipstick (07/13/2018 4:03 PM CLAIM MANAGER) Color urine, POC Yellow Clarity urine, POC Clear Glucose urine, POC Negative Negative Bilirubin urine, POC Negative Negative Ketones urine, POC Negative Negative Specific gravity urine, 1.020 1.005 - 1.030 POC Blood urine, POC Moderate (A) Negative pH urine, POC 5.5 5.0, 5.5, 6.0, 6.5, 7.0, 7.5, 8.0, 8.5 Protein urine, POC Negative Negative Urobilinogen urine, POC <2.0 <2.0 Nitrite urine, POC Negative Negative Leukocyte esterase urine, Negative Negative POC Specimen Urine * CT Abd/Pelvic External Study (07/08/2018 7:23 PM CLAIM MANAGER) Narrative Performed At This exam was not acquired at a Jewish facility and has not been [facility] interpreted by a Jewish Provider.The exam was imported into our imaging system for comparisons purposes. Performing Organization Address City/State/Zipcode Phone Number [facility] [address] [place] [address] * Hand/Upper Extremity Injection/Arthrocentesis: R extensor compartment 1 (05/25/2018 4:00 PM CLAIM MANAGER) Narrative Performed At Yogesh Beard MD 05/25/20185:10 PM Hand/Upper Extremity Injection/Arthrocentesis: R extensor compartment 1 Date/Time: 05/25/2018 5:09 PM Consent given by: patient Site marked: site marked Timeout: Immediately prior to procedure a time out was called to verify the correct patient, procedure, equipment, sales support coordinator and site/side marked as required Supporting Documentation [...] * EMG general request (05/06/2018 1:52 PM CLAIM MANAGER) Impressions Performed At The patient has throbbing [...] Sams M.D. Brandon Cifuentes Department of Neurology [facility] [address] Office: [phone] Narrative Performed At NERVE CONDUCTION AND ELECTROMYOGRAPHY REPORT [facility] [place]-[address] [facility]; [place], [place] [address]; Name: Isabela Bocanegra Date of Procedure: 05/06/18 [...] Hands 3 Vw Bilateral (04/30/2018 3:29 PM CLAIM MANAGER) Narrative Performed At [facility] PA, lateral, oblique [...] evidence for fracture, dislocation. Performing Organization Address City/State/[facility] Phone Number [facility] [address] [place] [address] after 07/30/2017 Insurance Payer Benefit Subscriber ID Type Phone Address Plan / Group MARIO MARTIN OPEN xxxxxxxxxxx O ACCESS/NET WORK Advance Directives Patient has advance care planning documents on file. For more information, olu lee contact: Adolph Tejada [address] [place] [address]
--- OUTSIDE RECORDS SUMMARY | 2018-07-31 18:20 | XMS REPORT | Clinical Summary ---
Author Author AB[facility]E [facility] Organization [facility] Address Unknown Phone Unavailable Care Team Providers Care Lead Web Developer Name Role Phone Rochelle Ventura [facility] PCP Allergies Comments Active Allergy [...] 2 diabetes mellitus with hyperglycemia, unspecified whether termite control service representative insulin use (HCC) (Primary Dx); Mixed hyperlipidemia; Iatrogenic hypothyroidism; Edema, unspecified type; Obesity, unspecified classification, unspecified obesity type, unspecified whether serious comorbidity present; Other fatigue; Screening for osteoporosis 12/01/2017 Orders Only Lab after 07/30/2017 Immunizations Name Dates Previously Given Next Due [...] Lot Implanted Type Area Manufactur er 12/30/2014 [id number] / [id number] / Dbx Putty,5cc Aseptic - Bone N/A: Spine [id number] Lumbar Implanted: Qty: 1 on 07/07/2013 by Josué Matos MD 07/17/2015 [id number] / / [id number] Sealant,Floseal Hemostatic Matrix Cement/Emigdio N/A: Spine 10ml - [id number] ler/Adhesi Lumbar Implanted: Qty: 1 on 07/07/2013 by Josué Alberto MD [id number] / / [id number] Screw, Cortical Cancellous Fracture/F N/A: Spine Multiaxial 5.5x45mm Cocr Solera - ixation Lumbar [id number] Implanted: Qty: 4 on 07/07/2013 by Josué Matos MD [id number] / / [id number] Set Screw,Breakoff 4.75mm Tit Fracture/F N/A: Spine Sextant - [id number] ixation Lumbar Implanted: Qty: 2 on 07/07/2013 by Josué Matos MD [id number] / / [id number] Amadou, Spinal 4.65f81px Cocr Sextant Spine N/A: Spine - [id number] Lumbar Implanted: Qty: 1 on 07/07/2013 by Josué Matos MD 08/24/2018 [id number] / / [id number] Cage,Vertebral Interbody Peek Spine N/A: Spine Capstone Verte-Stack [id number] - Lumbar [id number] Implanted: Qty: 1 on 07/07/2013 by Josué Matos MD [id number] / / [id number] Amadou, Sextant, 30mm X 1 N/A: Spine Implanted: Qty: 1 on 07/07/2013 by Josué Harrison MD Procedures Comments Procedure Name Priority Date/Time Associated Diagnosis T3 Routine 12/01/2017 Type 2 diabetes mellitus 8:15 AM CDT with hyperglycemia, unspecified whether senior care insulin use (HCC) Mixed hyperlipidemia Iatrogenic hypothyroidism Edema, unspecified type Obesity, unspecified classification, unspecified obesity type, unspecified whether serious comorbidity present Other fatigue Screening for osteoporosis T4, FREE Routine 12/01/2017 Type 2 diabetes mellitus 8:15 AM CDT with hyperglycemia, unspecified whether termite control service representative insulin use (HCC) Mixed hyperlipidemia Iatrogenic hypothyroidism Edema, unspecified type Obesity, unspecified classification, unspecified obesity type, unspecified whether serious comorbidity present Other fatigue Screening for osteoporosis TSH Routine 12/01/2017 Type 2 diabetes mellitus 8:15 AM CDT with hyperglycemia, unspecified whether termite control service representative insulin use (HCC) Mixed hyperlipidemia Iatrogenic hypothyroidism Edema, unspecified type Obesity, unspecified classification, unspecified obesity type, unspecified whether serious comorbidity present Other fatigue Screening for osteoporosis after 07/30/2017 Results * T3 (12/01/2017 8:15 AM CDT) T3, Total 65 48 - 159 ng/dL [facility] Specimen Blood Performing Organization Address City/[facility] [place] [address] [facility] * TSH (12/01/2017 8:15 AM CDT) TSH 0.23 (L) 0.35 - 4.94 uIU/mL [facility] Specimen Blood Performing Organization Address City/[facility]/Zipcode Phone Number [address] [address] [facility] * T4, free (12/01/2017 8:15 AM CDT) Free T4 1.03 0.70 - 1.48 ng/dL [facility] Specimen Blood Performing Organization Address City/[facility]/Zipcode Phone Number [facility] [address] [place] [address] [facility]ENTER after 07/30/2017 Insurance Payer Benefit Subscriber ID Type Phone Address Plan / Group CIGNA - MGD CARE CIGNA xxxxxxxxxxx HMO/POS HMO/POS/OP EN ACCESS CIGNA - MGD CARE CIGNA PPO xxxxxxxxxxx PPO Advance Directives For more information, please contact: [facility] [address] [place], [place] [id number] Date Inactivated Comments Code Status Date Activated [...]
[2018-07-31] MEDS ORDERED: ASPIRIN 81 MG CHEW TAB PO ONE (18:45)
[2018-07-31 18:56] LABS: BASOPHILS # (AUTO) 0.1 (0.0-0.1); BASOPHILS % 0.4 % (0.0-1.0); EOSINOPHILS # (AUTO) 0.1 (0.0-0.4); HEMATOCRIT 38.1 % (34.2-44.1); HEMOGLOBIN 12.7 g/dL (12.0-16.0); LYMPHOCYTES # (AUTO) 1.7 (1.0-3.2); LYMPHOCYTES % 12.9 % (18.0-39.1); MEAN CORPUSCULAR HEMOGLOBIN 30.2 pg (28-32); MEAN CORPUSCULAR HGB CONC 33.3 g/dL (31-35); MEAN CORPUSCULAR VOLUME 90.7 fL (81-99); MONOCYTES # (AUTO) 1.2 (0.2-0.8); MONOCYTES % 8.9 % (4.4-11.3); NEUTROPHILS # (AUTO) 10.3 (2.1-6.9); NEUTROPHILS % 76.6 % (38.7-80.0); PLATELET COUNT 169 x10e3/uL (140-360); RED CELL DISTRIBUTION WIDTH 12.4 % (11.7-14.4)
[2018-07-31 19:12] LABS: INR 0.99; PROTHROMBIN TIME 13.6 seconds (11.9-14.5)
[2018-07-31 19:24] LABS: ALANINE AMINOTRANSFERASE 29 IU/L (0-55); ALBUMIN 4.1 g/dL (3.5-5.0); ALBUMIN/GLOBULIN RATIO 1.1 (0.8-2.0); ALKALINE PHOSPHATASE 100 IU/L (40-150); ANION GAP 14.4 mmol/L (8-16); BLOOD UREA NITROGEN 16 mg/dL (7-26); BUN/CREATININE RATIO 18 (6-25); CALCIUM 9.4 mg/dL (8.4-10.2); CARBON DIOXIDE 28 mmol/L (22-29); CHLORIDE 100 mmol/L (98-107); CREATINE KINASE 61 IU/L (29-168); CREATININE, SERUM 0.89 mg/dL (0.57-1.11); EST GLOMERULAR FILTRATION RATE > 60 ML/MIN (60-); GLUCOSE 127 mg/dL (74-118); POTASSIUM 4.4 mmol/L (3.5-5.1); SODIUM 138 mmol/L (136-145)
--- NOTE | 2018-07-31 19:36 | Diagnostic Imaging Report ---
EXAMINATION: CHEST SINGLE (PORTABLE) INDICATION: Chest pain COMPARISON: None FINDINGS: AP view TUBES and LINES: None. LUNGS: Lungs are well inflated. Lungs are clear. There is no evidence of pneumonia or pulmonary edema. PLEURA: No pleural effusion or pneumothorax. HEART AND MEDIASTINUM: The cardiomediastinal silhouette is unremarkable. BONES AND SOFT TISSUES: No acute osseous lesion. Soft tissues are unremarkable. UPPER ABDOMEN: No free air under the diaphragm. IMPRESSION: No acute thoracic abnormality. Signed by: Dr. Manolo Wall M.D. on 07/31/2018 7:33 PM
[2018-07-31 20:41] LABS: CLARITY,URINE CLEAR (CLEAR); COLOR,URINE YELLOW (YELLOW)
[2018-07-31 20:42] LABS: BACTERIA,URINE RARE /HPF; BILIRUBIN,URINE NEGATIVE (NEGATIVE); EPITHELIAL CELLS,URINE RARE /LPF; KETONES,URINE NEGATIVE (NEGATIVE); LEUKOCYTE ESTERASE ,URINE TRACE (NEGATIVE); NITRITE,URINE NEGATIVE (NEGATIVE); PROTEIN,URINE DIPSTICK NEGATIVE (NEGATIVE); RBC,URINE 0-5 /HPF (0-5); URINE UROBILINOGEN 0.2 mg/dL (0.2 - 1)
--- NOTE | 2018-07-31 21:49 | Diagnostic Imaging Report ---
EXAM: CT Chest WITH contrast 07/31/2018 7:13 PM INDICATION: Chest pain. Shortness of breath. COMPARISON: None TECHNIQUE: Chest was scanned utilizing a multidetector helical scanner from the lung apex through the level of the adrenal glands without administration of IV contrast. Coronal and sagittal reformations were obtained. Pulmonary embolism protocol was performed. IV CONTRAST: 100 mL of Omnipaque 300 RADIATION DOSE: Total DLP: 473.21 mGy*cm Estimated effective dose: (DLP x 0.014 x size factor) mSv COMPLICATIONS: None FINDINGS: LINES/ TUBES: None. LUNGS AND AIRWAYS: Patchy groundglass densities throughout the dependent lower lobes may represent atelectasis versus less likely pneumonitis. No focal consolidation. Airways are normal. No filling defects within the pulmonary arterial system to the resolved segmental level. PLEURA: The pleural spaces are clear. HEART AND MEDIASTINUM: The thyroid gland is normal. No mediastinal, hilar or axillary lymphadenopathy. The heart is normal in size.. There is no pericardial effusion. There is mild diffuse wall thickening of the esophagus suggestive of esophagitis in the proper clinical setting. UPPER ABDOMEN: Limited non-contrast views of the upper abdomen show Postsurgical changes of the stomach suggestive of gastric bypass. . The spleen appears prominent, however, was not completely included in this examination. BONES: Thoracic spondylosis and DISH. SOFT TISSUES: Unremarkable. IMPRESSION: 1. No pulmonary embolism as per clinical query. 2. Diffuse wall thickening of the esophagus may reflect esophagitis. 3. Patchy groundglass densities throughout the dependent lower lobes may represent atelectasis versus less likely pneumonitis. No focal consolidation. Signed by: Dr. Jeffry Harvey M.D. on 07/31/2018 9:46 PM
[2018-07-31] MEDS ORDERED: SODIUM CHLORIDE 0.9% 50ML 50 ML ONE (22:43)
[2018-07-31] MEDS ORDERED: IOPAMIDOL 370 MG/ML 200 ML INFUS..BTL INJ ONE (22:43)
[2018-08-01 01:31] LABS: CREATINE KINASE 46 IU/L (29-168)
[2018-08-01] MEDS ORDERED: FAMOTIDINE 20 MG/2 ML VIAL IV STA (02:04)
[2018-08-01] MEDS ORDERED: FAMOTIDINE20 MG PO (02:11)
[2018-08-01] MEDS ORDERED: MAALOX ADVANCE1 EACH PO (02:11)
[2018-08-01] MEDS ORDERED: DONNATAL/LIDOCAINE/MAALOX 30 ML SUSP PO ONE (02:15)
--- NOTE | 2018-08-01 03:39 | NUR ---
patient laying in supine position in bed stating wanting to leave the hospital because she feels better. patient in no distress, resp e/u, all pulses palpable and strong, denies pain in chest.
[2018-08-01 03:41] VITALS: BP 115/67
== END 2018-08-01 04:00 | disposition home or self-care (01) ==
LOC: ER 18:17
DX: R07.89 Other chest pain (principal); R10.13 Epigastric pain; K29.00 Acute gastritis without bleeding; K21.0 Gastro-esophageal reflux disease with esophagitis
CPT/HCPCS: 36415; 71045; 71260; 80053; 81001; 82550; 82553; 83880; 84484; 85025; 85610; 85730; 93005; 99283; Q9967

== ENCOUNTER 2019-10-13 16:28 | Emergency (ER) | payer OTHER ==
[~2019-10-13] VITALS: Ht 154.9 cm; Wt 72.6 kg
[~2019-10-13 16:28] MED LIST changes: +FAMOTIDINE20 MG PO; +MAALOX ADVANCE1 EACH PO
--- OUTSIDE RECORDS SUMMARY | 2019-10-13 16:31 | XMS REPORT | Clinical Summary ---
Author Author [facility] Organization [facility] Address Unknown Phone Unavailable Care Team Providers Care Truck Striker Name Role Phone Rochelle Ventura MD PCP Allergies Comments Active Allergy Reactions Severity Noted Date Thimerosal 01/17/2016 Tixocortol Pivalate 01/17/2016 Medications End Date Status Medication Sig Dispensed Refills Start Date Active lisinopril-hydrochlorothi 1 tablet. 0 azide (PRINZIDE,ZESTORETIC) 20-12.5 mg per tablet Active rosuvastatin (CRESTOR) 5 1 TABLET 0 12/12 MG tablet DAILY 1 Active metFORMIN (GLUCOPHAGE) [...] Active levothyroxine (SYNTHROID) TAKE 1 TABLET 0 11/17 125 MCG tablet DAILY 6 Active lidocaine (LIDODERM) 5 APPLY ONE 30 patch 0 %Indications: PATCH 7 Spondylolisthesis of TOPICALLY lumbar region DAILY. REMOVE AND DISCARD PATCH WITHIN 12 HOURS OR DIRECTED Active tamsulosin (FLOMAX) 0.4 TAKE 1 30 capsule 0 /201 mg capsule CAPSULE (0.4 9 MG TOTAL) BY MOUTH DAILY WITH DINNER. 10/28/2018 Discontinued (Reorder) tamsulosin (FLOMAX) 0.4 Take 1 30 capsule 0 /201 mg capsule capsule (0.4 9 mg total) by mouth daily with dinner. Active Problems Problem Noted Date Kidney stones 10/01/2018 Renal colic 10/01/2018 Overview: KUB and renal US Start tamsulosin with precautions revie wed F/U Bilateral carpal tunnel syndrome 04/30/2018 De Quervain's tenosynovitis, right 04/30/2018 Sleep apnea Encounters Care Team Description Date Type Specialty Gracie Gray PA 10/28/2018 Refill Urology after 10/12/2018 Social History Date Tobacco Use Types Packs/Day [...] Health Maintenance Due Date Last Done Comments DIABETIC RETINAL EYE EXAM 1951 DIABETIC FOOT EXAM 12/24/1961 URINE MICROALBUMIN 12/24/1961 BREAST CANCER SCREENING 12/24/2001 COLONOSCOPY SCREENING 12/24/2001 SHINGLES VACCINES (#1) 12/24/2001 65+ PNEUMOCOCCAL VACCINE 12/24/2016 12/03/2017, (2 of 2 - PPSV23) 06/13/2011 INFLUENZA VACCINE 12/18/2019 Results Not on fileafter 10/12/2018 Insurance Type Payer Benefit Subscriber ID Effective Phone Address Plan / Dates Group HMO CIGNA CIGNA OPEN xxxxxxxxxxx 2017-P ACCESS/NET resent WORK Advance Directives For more information, please contact: [phone] 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
--- OUTSIDE RECORDS SUMMARY | 2019-10-13 16:31 | XMS REPORT | Clinical Summary ---
Author Author [facility] Address Unknown Phone Unavailable Care Team Providers Care Kiln Door Builder Name Role Phone Rochelle Ventura Tiff PCP Unavailable Allergies Comments Active Allergy Reactions Severity Noted Date cream Thimerosal Rash Low 07/30/2012 Cream. Please note: patient has tolerated steroid shots before (solumedrol and betamethasone) Tixocortol Pivalate Rash Low 07/30/2012 Medications End Date Status Medication Sig Dispensed Refills Start Date Active CRESTOR 5 mg tablet TAKE 1 TABLET 90 tablet 0 DAILY 6 Active aspirin 81 MG EC tablet Take 81 mg by 0 mouth daily. Active iron, carbonyl (FEOSOL) Take by 0 45 mg Tab tablet mouth. Active levothyroxine (SYNTHROID, Take 75 mcg 0 LEVOTHROID) 75 MCG tablet by mouth Every morning on an empty stomach. Active lisinopril Take 10 mg by 0 (PRINIVIL,ZESTRIL) 10 MG mouth daily. tablet Active liraglutide 0.6 mg/0.1 mL Inject 0 (18 mg/3 mL) PnIj subcutaneousl y daily. Active metFORMIN (GLUCOPHAGE) Take 500 mg 0 500 MG tablet by mouth daily with breakfast. Active esomeprazole (NEXIUM) 40 Take 40 mg by 0 MG capsule mouth 2 (two) times daily. Active Problems Problem Noted Date Lumbar back pain with radiculopathy affecting right l ower extremity 02/26/2017 Sacroiliitis 02/22/2016 Spondylolisthesis, lumbar region 02/22/2016 Antiphospholipid antibody positive 10/04/2015 Overview: Per Dr. Kemp - recommends to get prop hylatic anticoagulation for prolonged immobiliaztion and or post op Essential hypertension 08/28/2015 Restless leg 08/28/2015 Hypothyroidism 08/28/2015 Overview: UPDATED BY ICD10 SNOMED/IMO UPDATES Gastroesophageal reflux disease without esophagitis 08/28/2015 Iron deficiency anemia 08/28/2015 Leg swelling 03/14/2015 Bilateral edema of lower extremity 03/14/2015 Diabetes (Kamaljit Figueroa) 12/09/2014 Diabetic peripheral neuropathy associated with type 2 diabetes mellitus 10/21/2013 Status post lumbar surgery 10/21/2013 Lumbar disc disease with radiculopathy 07/07/2013 BMI 40.0-44.9, adult 05/06/2013 S/P cholecystectomy Sleep apnea Overview: on CPAP, last sleep apnea test in 2002. Immunizations Name Dates Previously Given Next Due [...] Date Last Done Comments BREAST CANCER SCREENING 03/02/2017 03/02/2015 HEMOGLOBIN A1C 08/28/2017 02/27/2017, 015, 12/09/2014, Additional history exists PNEUMOCOCCAL 65+ 12/03/2018 12/03/2017, 012, 06/13/2011 LOW/MEDIUM RISK (2 of 2 - PPSV23) INFLUENZA VACCINE (#1) 2019 01/17/2015 COLON CANCER SCREENING 04/14/2027 04/14/2017, COLONOSCOPY Implants Device Identifier Shelf Expiration Date Model / Serial / L ot Implanted Type Area Manufactur er 12/30/2014 [id number] / [id number] / Dbx Putty,5cc Aseptic - Bone N/A: Spine [id number] Lumbar Implanted: Qty: 1 on 07/07/2013 by Josué Matos MD 07/17/2015 [id number] / / [id number] Sealant,Floseal Hemostatic Matrix Cement/Emigdio N/A: Spine 10ml - [id number] ler/Adhesi Lumbar Implanted: Qty: 1 on 07/07/2013 by ve Josué Matos MD [id number] / / [id number] Screw, Cortical Cancellous Fracture/F N/A: Spine Multiaxial 5.5x45mm Cocr Solera - ixation Lumb ar [id number] Implanted: Qty: 4 on 07/07/2013 by Josué Matos MD [id number] / / [id number] Set Screw,Breakoff 4.75mm Tit Fracture/F N/A: Spi ne Sextant - [id number] ixation Lumbar Implanted: Qty: 2 on 07/07/2013 by Josué Matos MD [id number] / / [id number] Amadou, Spinal 4.86t68ca Cocr Sextant Spine N/A : Spine - [id number] Lumbar Implanted: Qty: 1 on 07/07/2013 by Josué Matos MD 08/24/2018 [id number] / / [id number] Cage,Vertebral Interbody Peek Spine N/A: Spi ne Capstone Verte-Stack 26p46tz - Lumbar [id number] Implanted: Qty: 1 on 07/07/2013 by Josué Matos MD 10/24/2022 NO-1230 / [id number] / [facility] [place] 2[facility] No-1230 - Tissue Right: Foot NUTECH MED [id number] Graft/Subs Implanted: Qty: 1 on 09/10/2018 by Thomas Kelley DPM [id number] / / [id number] Amadou, Sextant, 30mm X 1 N/A: Spine Implanted: Qty: 1 on 07/07/2013 by Lumbar Josué Matos MD Results Not on fileafter 10/12/2018 Insurance Payer Benefit Subscriber ID Type Phone Address Plan / Group CIGNA - MGD CARE CIGNA xxxxxxxxxxx HMO/POS HMO/POS/OP EN ACCESS -[id number] Advance Directives For more information, please contact: [facility] [address] [place] [address] Date Inactivated Comments Code Status Date Activated 03/01/2017 3:25 PM Full Code 02/26/2017 11:35 PM This code status was determined by: Patient 02/22/2016 9:45 AM Full Code 02/22/2016 5:57 AM This code status was determined by: Patient 07/11/2013 4:15 PM All possible means of suppor t including;cardiac massage, mechanical ventilation, and defibrillation will be used to support life. Code ONE 07/07/2013 9:02 AM
--- OUTSIDE RECORDS SUMMARY | 2019-10-13 16:32 | XMS REPORT ---
Author Author [facility] t Organization [facility] Address [address] [place] [address] Phone Unavailable Care Team Providers Care Construction Scheduler Name Role Phone NO, PCP PCP Unavailable Brielle SUAREZ, Michael Downey Attphys Nasim SUAREZ, Marcia Attphys Sara Mustafa Attphys Kodi SALEH Attphys Unavailable Michael CORONA Attphys Unavailable RAISA MEYERS Attphys Unavailable PAT PINEDO Attphys Unavailable JERNIGAN, K. SUNEAL Attphys Unavailable JOHN LIU Attphys Unavailable TUNDE ROB Attphys Unavailable Kamaljit DEE Attphys Unavailable Kodi SALEH Admphys Unavailable JERNIGAN, K. SUNEAL Admphys Unavailable JOHN LIU Admphys Unavailable GOLDEN ALVES Admphys Unavailable Payers Payer Name Policy Type Policy Number Effective Date Expiration Date Sebastián rosio RASHAAD OPEN ACCESS/NETWORKxxxxxxxxxxx2017-PresentO xxxxxxxxxxx 2017 00:00:00 Adolph Tejada [facility] [id number] 2017 00:00:00 [facility] [id number] [facility] Problems Condition Name Condition Details Condition Category Status Onset Date Resolution Date Last Treatment Date Treating Clinician Comments Source Kidney stones Kidney stones Disease Active 2018-10-01 00:00:00 Adolph Tejada Renal colic Renal colic Disease Active 2018-10-01 00:00:00 Overview: KUB and renal USStart tamsulosin with precautions reviewedF/U Adolph Tejada Bilateral carpal tunnel syndrome Bilateral carpal tunnel syndrom e Disease Active 2018-04-30 00:00:00 [place] [facility] De Quervain's tenosynovitis, right De Quervain's tenosynovitis, right Disease Active 2018-04-30 00:00:00 [place] [facility] Sleep apnea Sleep apnea Disease Active Adolph Tejada Allergies, Adverse Reactions, Alerts Allergy Name Allergy Type Status Severity Reaction(s) Onset Date Inacti ve Date Treating Clinician Comments Source Thimerosal Propensity to adverse reactions to drug Active 2016-01-17 00:00:00 Adolph jaquez Tixocortol Pivalate Propensity to adverse reactions to drug Active 2016-01-17 00:00:00 Adolph oleary Social History Social Habit Start Date Stop Date Quantity Comments Source Sex Assigned At [facility] hou Religious Smoking Status Start Date Stop Date Source Never smoker Adolph jaquez Medications Ordered Medication Name Filled Medication Name Start Date Stop Da te Current Medication? Ordering Clinician Indication Dosage Frequency Signature (SIG) Comments Components Source tamsulosin (FLOMAX) 0.4 mg capsule 2018-10-30 00:00:00 Yes .4mg QD TAKE 1 CAPSULE (0.4 MG TOTAL) BY MOUTH DAILY WITH DINNER. Adolph Tejada tamsulosin (FLOMAX) 0.4 mg capsule 2018-10-01 00:00:00 201 01-23-12 00:00:00 No .4mg QD Take 1 capsule (0.4 mg total) by mouth d aily with dinner. Adolph Tejada lisinopril-hydrochlorothiazide (PRINZIDE,ZESTORETIC) 20-12.5 mg per tablet 2018-07-16 15:53:46 Yes 1{tbl} 1 tablet. Adolph Tejada metFORMIN (GLUCOPHAGE) 500 MG tablet 2018-07-16 15:53:46 Ye s metformin ER 500 mg tablet,extended release 24 hr Adolph Tejada pen needle, diabetic (BD INSULIN PEN NEEDLE UF MINI) 31 gaug e x 3/16" needle 2018-07-16 15:53:46 Yes BD Insulin Pen Needle UF Mini 31 gauge x 3/16" Adolph Tejada esomeprazole (NexIUM) 40 MG capsule 2018-07-16 15:53:46 Yes esomeprazole magnesium 40 mg capsule,delayed release Adolph Tejada meclizine (ANTIVERT) 25 mg tablet 2018-07-16 15:53:46 Yes meclizine 25 mg tablet Adolph Tejada lidocaine (LIDODERM) 5 % 2016-09-17 00:00:00 Yes Spondylolisthesis of lumbar region APPLY ONE PATCH TOPI SHARI DAILY. REMOVE AND DISCARD PATCH WITHIN 12 HOURS OR DIRECTED Adolph Alonzo ethodi levothyroxine (SYNTHROID) 125 MCG tablet 2015-12-07 00:00:00 Yes TAKE 1 TABLET DAILY Adolph Tejada liraglutide (VICTOZA 2-JAXSON) 0.6 mg/0.1 mL (18 mg/3 mL) pen i njector 2013-07-21 00:00:00 Yes 1.8mg Inject 1.8 mg under the skin. Adolph Tejada rosuvastatin (CRESTOR) 5 MG tablet 2010-12-12 00:00:00 Yes 1 TABLET DAILY Adolph Tejada Procedures This patient has no known procedures. Plan of Care Planned Activity Planned Date Details Comments Source Future Scheduled Test 2019-12-18 00:00:00 INFLUENZA VACCINE [code = INFLUENZA VACCINE] [facility] Future Scheduled Test 2016-12-24 00:00:00 65+ PNEUMOCOCCAL V ACCINE (2 of 2 - PPSV23) [code = 65+ PNEUMOCOCCAL VACCINE (2 of 2 - PPSV23)] [facility] Future Scheduled Test 2001-12-24 00:00:00 BREAST CANCER SCRE ENING [code = BREAST CANCER SCREENING] [facility] Future Scheduled Test 2001-12-24 00:00:00 COLONOSCOPY SCREEN ING [code = COLONOSCOPY SCREENING] [facility] Future Scheduled Test 2001-12-24 00:00:00 SHINGLES VACCINES (#1) [code = SHINGLES VACCINES (#1)] [facility] Future Scheduled Test 1961-12-24 00:00:00 DIABETIC FOOT EXAM [code = DIABETIC FOOT EXAM] [facility] Future Scheduled Test 1961-12-24 00:00:00 URINE MICROALBUMIN [code = URINE MICROALBUMIN] [facility] Future Scheduled Test 1950 00:00:00 DIABETIC RETINAL E YE EXAM [code = DIABETIC RETINAL EYE EXAM] Adolph Tejada Encounters Start Date/Time End Date/Time Encounter Type Admission Type Attendi ng Clinicians Care Facility Care Department Encounter ID Source 2019-02-25 09:24:44 2019-02-25 09:39:44 Office Visit Nasreen Hannah [facility] [id number] 2019-01-22 07:25:42 2019-01-22 07:45:42 Office Visit Marcia Rouse [facility] [id number] 2018-07-31 18:17:00 2018-08-01 04:00:00 Departed Emergency Room 1 KARON CORONA [facility] [id number] [facility] 2018-07-08 17:48:00 2018-07-08 22:07:00 Departed Emergency Room 1 RAISA MEYERS [facility] [id number] [facility] Results Test Description Test Time Test Comments Results Result Comments Source TISSUE EXAM 2018-09-11 14:31:00 Surgical Pat hology Report Case: [id number] Authorizing Provider: Thomas Saleh DPM Collected: 09/10/2018 1019 Ordering Location: [facility] Received: 09/10/2018 1225 SERVICES Pathologist: Zuleyka Luis MD Specimen: Neuroma, neuroma of 5th toe,right foot SOFT TISSUE, RIGHT 5TH TOE DIGIT, EXCISION: - NERVE FIBERS WITH FOCAL REACTIVE CHANGES - SEE MICROSCOPIC SECTION Signing Pathologist Direct Phone Line: [phone] signed by Zuleyka Luis MD on 09/11/2018 at 2:31 [id number] foot exostosis, hammertoe right foot Neuroma 5th toe, right footThe specimen is received in a formalin-filled container and labeled with the patient's information and alcohol "neuroma of 5th toe, right foot" and consists of a segment of urena tissue measuring 0.5 x 0.4 x 0.2 cm, submitted A1. CG/pl The tissue from the right foot shows connective tissue with some myxoid changes. Within this element, there are some nerve fibers with slightly proliferative changes. Other significant features are not noted. POCT-GLUCOSE METER 2018-09-10 10:32:00 Test Item POC-GLUCOSE METER (BEAKER) (test code = 1538) 66 mg/dL 70-110 L Will Repeat Test/TESTED AT [address] [address] POCT-GLUCOSE [id number] 06:51:00* Test Item Value Reference Range Interpretation Comments POC-GLUCOSE METER (BEAKER) (test code = 1538) 110 mg/dL 70-110 TESTED AT [address] [address] BASIC METABOLIC [id number] 10:42:00* Test Item Value Reference Range Interpretation Comments SODIUM (BEAKER) (test code = 381) 143 meq/L 136-145 POTASSIUM (BEAKER) (test code = 379) 4.7 meq/L 3.5-5.1 CHLORIDE (BEAKER) (test code = 382) 109 meq/L 98-107 H CO2 (BEAKER) (test code = 355) 28 meq/L 22-29 BLOOD UREA NITROGEN (BEAKER) (test code = 354) 28 mg/dL 7-21 H CREATININE (BEAKER) (test code = 358) 0.84 mg/dL 0.57-1.25 GLUCOSE RANDOM (BEAKER) (test code = 652) 114 mg/dL 70-105 H CALCIUM (BEAKER) (test code = 697) 9.8 mg/dL 8.4-10.2 EGFR (BEAKER) (test code = 1092) 68 mL/min/1.73 sq m ESTIMATED GFR IS NOT ACCURATE CREATININE CLEARANCE IN PREDICTING GLOMERULAR FILTRATION RATE. ESTIMATED GFR IS NOT APPLICABLE FOR DIALYSIS PATIENTS. [id number] 10:27:00* Test Item Value Reference Range Interpretation Comments HEMOGLOBIN (BEAKER) (test code = 410) 12.4 GM/DL 11.2-15.7 CT CHEST [id number] 21:38:00 [place] [address] Patient Name: REYMUNDO BOCANEGRA MR #: [id number] : 1950 Age/Sex: 67/F Req #: [id number] Adm Physician: Ordered by: RUDI HURTADO MD Report #: [id number] Location: ER Room/Bed: Procedure: [id number]/CT CHEST W Exam Date: 07/31/18 Exam Time: 200 0 REPORT STATUS: Signed EXAM: CT Chest WITH contrast 07/31/2018 7:13 PM INDICATION: Chest pain. Shortness of b reath. COMPARISON: None TECHNIQUE: Chest was scanned utilizing a multidete ctor helical scanner from the lung apex through the level of the adrenal gland s without administration of IV contrast. Coronal and sagittal reformations wer e obtained. Pulmonary embolism protocol was performed. IV CONTRAS T: 100 mL of Omnipaque 300 RADIATION DOSE: Total DLP: 473.21 mGy*cm Estimated effective dose: (DLP x 0.014 x size factor) mSv COMPLICATIONS: None FINDINGS: LINES/ TUBES: None. LUNGS AND AIRWAYS: Patchy groundglass densities throughout the dependent lower lobes may represent atelectasis versus less likely pneumonitis. No focal consolidation. Airways are normal. No filling defects within the pulmonary arterial system to the resolved segmental level. PLEURA: The pleural spaces are clear. HEART AND MEDIASTINUM: The thyroid gland is normal. No mediastinal, hilar or axillary lymphadenopathy. The heart is normal in size.. There is no pericard ial effusion. There is mild diffuse wall thickening of the esophagus suggesti ve of esophagitis in the proper clinical setting. UPPER ABDOMEN: Limited no n-contrast views of the upper abdomen show Postsurgical changes of the stomach suggestive of gastric bypass. . The spleen appears prominent, however, was not completely included in this examination. BONES: Thoracic spondylosis and DISH. SOFT TISSUES: Unremarkable. IMPRESSION: 1. No pulmonary emboli sm as per clinical query. 2. Diffuse wall thickening of the esophagus may r eflect esophagitis. 3. Patchy groundglass densities throughout the dependen t lower lobes may represent atelectasis versus less likely pneumonitis. No foc al consolidation. Signed by: Dr. Jeffry Holden M.D. on 07/31/2018 9: 46 PM Dictated By: LANETTE HOLDEN MD, MD 45 Transcribed By: REBA on 07/31/182145 COPY TO: RUDI HURTADO MD CHEST SINGLE (PORTABLE)2018-07-31 19:32:00 [place] [address] Patient Name: REYMUNDO BOCANEGRA MR #: [id number] : 12/1950 Age/Sex: 67/F Req #: [id number] Adm Physician: Ordered by: KARON CORONA MD Report #: [id number] Location: ER Room/Bed: Procedure: [id number] 3 DX/CHEST SINGLE (PORTABLE) Exam Date: 07/31/18 Exa m Time: 1918 REPORT STATUS: Signed EXAMINATION: CHEST SINGLE (PORTABLE) INDICATION: Chest pain COMPARISON: None FINDINGS: AP view TUBES and LINES: None. LUNGS: Lungs are well inflated. Lungs are clear. There is no evidence of pneumonia or pulmonary edema. PLEURA: No pleural effusion or pneumothorax. HEART AND MEDIASTINUM: The cardiomediastinal silhouette is unremarkable. BONES AND SOFT TISSUES: No acute osseous lesion. Soft tissues are unremarkable. UPPER ABDOMEN: No free air under the diaphragm. I MPRESSION: No acute thoracic abnormality. Signed by: Santana Quiroz on 07/31/2018 7:33 PM Dictated By: RAGINI NIXON MD 32 Transcribed By: REBA on 07/31/181932 COPY TO: KARON CORONA MD CT ABDOMEN/PELVIS [id number] 19:30:00 [place] [id number] [place] [address] Patient Name: REYMUNDO BOCANEGRA MR #: [id number] : 1950 Age/Sex: 67/F Req #: [id number] Adm Physician: Ordered by: RAISA MEYERS ARTIFICIAL INTELLIGENCE SPECIALIST Report #: [id number] Location: ER Room/Bed: Procedure: [id number]/CT ABDOMEN/PELVIS WO Exam Date: 07/08/18 Exam T eva: 1914 REPORT STATUS: Signed EXAM: CT of the abdomen and pelvis WITHOUT contrast HISTORY: Right flank pain, nausea, COMPARISON: None available. TECHNIQUE: The abdomen and pelvis were scanned utilizing a multidetector helical scanner. Coronal and sa gittal reformats are available. PROTOCOL: Renal colic IV CONTRAST: None, which limits sensitivity and specificity of evaluation of the soft tissues and vascular structures. ORAL CONTRAST: None, which limits sensitivity and specificity of evaluation of the bowel. RADIATION DOSE: Total DLP: 430.27 mGy*cm Estimated effective dose: (DLP x 0.015 x size factor) Dose modulation, iterative re construction, and/or weight based adjustment of the mA/kV was utilized to redu ce the radiation dose to as low as reasonably achievable. COMPLI CATIONS: None FINDINGS: Beam Burton artifact related to the spine fixati on hardware, limits regional evaluation. LOWER THORAX: Unremarkable. HEPATOBILIARY: No definite focal hepatic lesions. No biliary ductal dilata tion. Metallic clips in the right upper quadrant of the abdomen are compatib le with prior cholecystectomy. SPLEEN: No splenomegaly. PANCREAS: No f ocal masses or ductal dilatation. ADRENALS: The glands bilaterally appear prominent, but no discrete nodule. KIDNEYS/URETERS: Right: Perinephric fat stranding. Mild hydronephrosis and dilation of the proximal right ureter, the ureter has a curved course within the mid abdomen extending to a punctate ca lcification (series 3 image 81). The ureter distal to this is not well visuali zed. Left: No hydronephrosis or stone. PELVIC ORGANS/BLADDER: The urinar y bladder is decompressed, which limits evaluation. PERITONEUM / RETROPER ITONEUM: No free air or fluid. GI TRACT: Postsurgical changes of the stomach. Scattered colonic diverticuli, without evidence of acute diverticulitis. The appendix appears normal. LYMPH NODES: No pathologically enlarged lymph node s. VESSELS: Diffuse scattered atherosclerotic vascular calcifications. BONES : Status post posterior fixation of L4-5. Apparent L5 pars interarticularis d efects with grade 1 anterolisthesis of L5 on S1. SOFT TISSUES: Ventral midline fat containing hernia without associated inflammatory changes. IMPRESSIO N: Mild right hydronephrosis and proximal hydroureter, likely secondary to a punctate proximal ureteral stone, 1 to 2 mm. Signed by: Dr. Uriel Hatfield D.O., M.M.M. on 07/08/2018 7:44 PM Dictated By: URIEL HATFIELD DO Electronic ally Signed By: URIEL HATFIELD DO on 07/08/181943 Transcribed By: REBA on 06/20 COPY TO: RAISA MEYRES NP [id number] 12:03:00* Test Item Value Reference Range Interpretation Comments THYROID STIMULATING HORMONE (BEAKER) (test code = 772) 0.23 uIU/mL 0.35-4.94 L T4, [id number] 12:01:00* Test Item Value Reference Range Interpretation Comments FREE T4 (BEAKER) (test code = 655) 1.03 ng/dL 0.70-1.48 [id number] 12:01:00* Test Item Value Reference Range Interpretation Comments T3 TOTAL (BEAKER) (test code = 656) 65 ng/dL 48-159 MR, SPINE, THORACIC, WITHOUT [id number] 11:02:00FINAL REPORT MRI thoracic spine without contrast [...] canal or foramin al compromise. Signed: Abel Fairchild Verified Date/Time: 05/01/2017 11:02:16 Reading Location: [address] Neuro Reading Room Electronically sig lupe by: ABEL FAIRCHILD M.D. on 05/01/2017 11:02 AM POCT-GLUCOSE METER 2017-04-15 08:06:00* Test Item Value Reference Range Interpretation Comments POC-GLUCOSE METER (BEAKER) (test code = 1538) 93 mg/dL 70-110 TESTED AT [facility] [address] CORNICE MAKER IN OR/30 MINUTE [id number] 16:42:00Reason for exam:-> L5,S1 transforaminal epidural injectionFINAL REPORT Fluoroscopic images were acquired for procedural assistance. Fluoroscopy time 0.5 minutes. Fluoroscopic images 3. Fluoroscopic guidance for lumbar transforaminal epidural injections. Because images were not submitted for interpretation, see separate report by the referring physician for clinical details and imaging interpretation. Signed: Edwar Alanis Verified Date/Time: 03/28/2017 16:42:00 Reading Location: [address] Radiology Reading Room Electronically signed by: EDWAR ALANIS M.D. on 04:42 PM POCT-GLUCOSE [id number] 07:38:00* Test Item Value Reference Range Interpretation Comments POC-GLUCOSE METER (BEAKER) (test code = 1538) 104 mg/dL 70-110 TESTED AT [address] [address] RAD, BONE DENSITY [id number] 14:46:00Reason for Exam:->e11.65Reason for Exam:->z13.820[facility] Mineral Density Date: March 05, 2017 Comparison: March 02, 2015 Clinical History: Osteoporosis Screening Report: Bone Mineral Density Measurement: Lumbar Spine: 1.595 gm/rt7Azoi Femoral Neck: 0.934 gm/cm2 Standard Deviation as [...] neck as compared to the young adult popu lation. Comment: Computer printout from the exam will follow this report.Postope rative changes are visualized with pedicle screws overlying the lower lumbar spi ne. Signed: Zuleyka Hinojosaort Verified Date/Time: 03/05/2017 14:46:32 [place] Location: [address] Radiology Reading Room -GLUCOSE [id number] 08:03:00* Test Item Value Reference Range Interpretation Comments POC-GLUCOSE METER (BEAKER) (test code = 1538) 110 mg/dL 70-110 TESTED AT [address] [address] POCT-GLUCOSE [id number] 21:00:00* Test Item Value Reference Range Interpretation Comments POC-GLUCOSE METER (BEAKER) (test code = 1538) 133 mg/dL 70-110 H TESTED AT [address] [address] POCT-GLUCOSE [id number] 18:11:00* Test Item Value Reference Range Interpretation Comments POC-GLUCOSE METER (BEAKER) (test code = 1538) 277 mg/dL 70-110 H TESTED AT [place] [id number] [facility] [address] POCT-GLUCOSE [id number] 13:24:00* Test Item Value Reference Range Interpretation Comments POC-GLUCOSE METER (BEAKER) (test code = 1538) 148 mg/dL 70-110 H TESTED AT [facility] [address] [facility] [address] POCT-GLUCOSE [id number] 07:41:00* Test Item Value Reference Range Interpretation Comments POC-GLUCOSE METER (BEAKER) (test code = 1538) 123 mg/dL 70-110 H TESTED AT [facility] [address] [facility] [address] BASIC METABOLIC [id number] 04:58:00* Test Item Value Reference Range Interpretation Comments SODIUM (BEAKER) (test code = 381) 139 meq/L 136-145 POTASSIUM (BEAKER) (test code = 379) 4.1 meq/L 3.5-5.1 CHLORIDE (BEAKER) (test code = 382) 105 meq/L 98-107 CO2 (BEAKER) (test code = 355) 26 meq/L 22-29 BLOOD UREA NITROGEN (BEAKER) (test code = 354) 43 mg/dL 7-21 H CREATININE (BEAKER) (test code = 358) 0.87 mg/dL 0.57-1.25 GLUCOSE RANDOM (BEAKER) (test code = 652) 121 mg/dL 70-105 H CALCIUM (BEAKER) (test code = 697) 8.7 mg/dL 8.4-10.2 EGFR (BEAKER) (test code = 1092) 65 mL/min/1.73 sq m ESTIMATED GFR IS NOT ACCURATE CREATININE CLEARANCE IN PREDICTING GLOMERULAR FILTRATION RATE. ESTIMATED GFR IS NOT APPLICABLE FOR DIALYSIS PATIENTS. RAD, KNEE, 3 VIEWS, [id number] 20:59:00Reason for exam:->pain after fall FINAL REPORT [...] or a knee effusion. Signed: Terry Saavedra Verified Date/Time: 02/27/2017 20:59:28 Reading Location: [address] Reading Room , HIP, 2 VIEWS, [id number] 20:56:00Reason for exam:->pain post fallFINAL REPORT EXAMINATION: [...] Saavedra Verified Date/Time: 02/27/2017 20:56:09 Reading Location: [address] Reading Room -GLUCOSE [id number] 20:54:00 * Test Item Value Reference Range Interpretation Comments POC-GLUCOSE METER (BEAKER) (test code = 1538) 258 mg/dL 70-110 H TESTED AT [address] [address] POCT-GLUCOSE [id number] 17:39:00* Test Item Value Reference Range Interpretation Comments POC-GLUCOSE METER (BEAKER) (test code = 1538) 182 mg/dL 70-110 H TESTED AT [address] [address] HEMOGLOBIN [id number] 12:54:00* Test Item Value Reference Range Interpretation Comments HEMOGLOBIN A1C (BEAKER) (test code = 368) 6.5 % 4.3-6.1 H POCT-GLUCOSE [id number] 12:37:00* Test Item Value Reference Range Interpretation Comments POC-GLUCOSE METER (BEAKER) (test code = 1538) 228 mg/dL 70-110 H TESTED AT [address] [address] POCT-GLUCOSE [id number] 08:02:00* Test Item Value Reference Range Interpretation Comments POC-GLUCOSE METER (BEAKER) (test code = 1538) 213 mg/dL 70-110 H TESTED AT [facility] [address] [facility] [address] POCT-GLUCOSE [id number] 01:26:00* Test Item Value Reference Range Interpretation Comments POC-GLUCOSE METER (BEAKER) (test code = 1538) 273 mg/dL 70-110 H TESTED AT [facility] [address] [facility] [address] URINALYSIS W/ [id number] 23:27:00* Test Item Value Reference Range Interpretation Comments COLOR (BEAKER) (test code = 470) Yellow CLARITY (BEAKER) (test code = 469) Hazy SPECIFIC GRAVITY UA (BEAKER) (test code = 468) 1.028 1.001-1 .035 PH UA (BEAKER) (test code = 467) 5.5 5.0-8.0 PROTEIN UA (BEAKER) (test code = 464) 30 mg/dL Negative A GLUCOSE UA (BEAKER) (test code = 365) 150 mg/dL Negative A KETONES UA (BEAKER) (test code = 371) 10 mg/dL Negative A BILIRUBIN UA (BEAKER) (test code = 462) Negative Negative BLOOD UA (BEAKER) (test code = 461) Negative Negative NITRITE UA (BEAKER) (test code = 465) Negative Negative LEUKOCYTE ESTERASE UA (BEAKER) (test code = 466) Negative Negat timothy UROBILINOGEN UA (BEAKER) (test code = 463) 0.2 mg/dL 0.2-1.0 RBC UA (BEAKER) (test code = 519) 0 /HPF WBC UA (BEAKER) (test code = 520) 1 /HPF MUCUS (BEAKER) (test code = 1574) Many SQUAMOUS EPITHELIAL (BEAKER) (test code = 516) 2 /HPF SOURCE(BEAKER) (test code = 2795) Urine, Voided MR, SPINE, LUMBAR, [id number] 11:55:00FINAL REPORT MR Lumbar spine with and [...] radiculopathic symptoms. 5. Colonic diverticulosis. Signed: Florentino Paredeseport Verified Date/Time: 02/26/2017 11:55:27 Reading Location: [facility] C013 Neuro Reading Room Electronically signed by: Belinda MONZON 02/26/2017 11:55 AM BASIC METABOLIC [id number] 10:35:00* Test Item Value Reference Range Interpretation Comments SODIUM (BEAKER) (test code = 381) 141 meq/L 136-145 POTASSIUM (BEAKER) (test code = 379) 4.2 meq/L 3.5-5.1 CHLORIDE (BEAKER) (test code = 382) 104 meq/L 98-107 CO2 (BEAKER) (test code = 355) 27 meq/L 22-29 BLOOD UREA NITROGEN (BEAKER) (test code = 354) 30 mg/dL 7-21 H CREATININE (BEAKER) (test code = 358) 0.81 mg/dL 0.57-1.25 GLUCOSE RANDOM (BEAKER) (test code = 652) 112 mg/dL 70-105 H CALCIUM (BEAKER) (test code = 697) 9.7 mg/dL 8.4-10.2 EGFR (BEAKER) (test code = 1092) 71 mL/min/1.73 sq m ESTIMATED GFR IS NOT ACCURATE CREATININE CLEARANCE IN PREDICTING GLOMERULAR FILTRATION RATE. ESTIMATED GFR IS NOT APPLICABLE FOR DIALYSIS PATIENTS. CBC W/PLT COUNT & AUTO [id number] 10:03:00* Test Item Value Reference Range Interpretation Comments WHITE BLOOD CELL COUNT (BEAKER) (test code = 775) 7.0 K/ L 3.5- 10.5 RED BLOOD CELL COUNT (BEAKER) (test code = 761) 4.46 M/ L 3.93-5 .22 HEMOGLOBIN (BEAKER) (test code = 410) 13.1 GM/DL 11.2-15.7 HEMATOCRIT (BEAKER) (test code = 411) 40.1 % 34.1-44.9 MEAN CORPUSCULAR VOLUME (BEAKER) (test code = 753) 89.9 fL 79. 4-94.8 MEAN CORPUSCULAR HEMOGLOBIN (BEAKER) (test code = 751) 29.4 pg 25.6-32.2 MEAN CORPUSCULAR HEMOGLOBIN CONC (BEAKER) (test code = 752) 32.7 GM/DL 32.2-35.5 RED CELL DISTRIBUTION WIDTH (BEAKER) (test code = 412) 13.2 % 11.7-14.4 PLATELET COUNT (BEAKER) (test code = 756) 173 K/CU MM 150-450 MEAN PLATELET VOLUME (BEAKER) (test code = 754) 10.2 fL 9.4-12 .3 NUCLEATED RED BLOOD CELLS (BEAKER) (test code = 413) 0 /100 WBC 0 -0 NEUTROPHILS RELATIVE PERCENT (BEAKER) (test code = 429) 59 % LYMPHOCYTES RELATIVE PERCENT (BEAKER) (test code = 430) 33 % MONOCYTES RELATIVE PERCENT (BEAKER) (test code = 431) 7 % EOSINOPHILS RELATIVE PERCENT (BEAKER) (test code = 432) 1 % BASOPHILS RELATIVE PERCENT (BEAKER) (test code = 437) 0 % NEUTROPHILS ABSOLUTE COUNT (BEAKER) (test code = 670) 4.10 K/ L 1.56-6.13 LYMPHOCYTES ABSOLUTE COUNT (BEAKER) (test code = 414) 2.28 K/ L 1.18-3.74 MONOCYTES ABSOLUTE COUNT (BEAKER) (test code = 415) 0.49 K/ L 0. 24-0.36 H EOSINOPHILS ABSOLUTE COUNT (BEAKER) (test code = 416) 0.10 K/ L 0.04-0.36 BASOPHILS ABSOLUTE COUNT (BEAKER) (test code = 417) 0.03 K/ L 0. 01-0.08 IMMATURE GRANULOCYTES-RELATIVE PERCENT (BEAKER) (test code = 2801) 0 % 0-1 RAPID [id number] 13:37:00* Test Item Value Reference Range Interpretation Comments RAPID CKMB (BEAKER) (test code = 1482) 1.0 ng/mL 0.0-4.3 RAPID TROPONIN [id number] 13:37:00* Test Item Value Reference Range Interpretation Comments RAPID TROPONIN I (BEAKER) (test code = 1483) < ng/mL <0.05 BASIC METABOLIC [id number] 13:26:00* Test Item Value Reference Range Interpretation Comments SODIUM (BEAKER) (test code = 381) 144 meq/L 135-148 POTASSIUM (BEAKER) (test code = 379) 4.9 meq/L 3.6-5.5 CHLORIDE (BEAKER) (test code = 382) 102 meq/L 98-106 CO2 (BEAKER) (test code = 355) 29 meq/L 24-32 BLOOD UREA NITROGEN (BEAKER) (test code = 354) 26 mg/dL 10-26 CREATININE (BEAKER) (test code = 358) 0.73 mg/dL 0.50-1.20 GLUCOSE RANDOM (BEAKER) (test code = 652) 160 mg/dL 70-110 H CALCIUM (BEAKER) (test code = 697) 9.7 mg/dL 8.5-10.5 EGFR (BEAKER) (test code = 1092) 80 mL/min/1.73 sq m ESTIMATED GFR IS NOT ACCURATE CREATININE CLEARANCE IN PREDICTING GLOMERULAR FILTRATION RATE. ESTIMATED GFR IS NOT APPLICABLE FOR DIALYSIS PATIENTS. CBC W/PLT COUNT & AUTO [id number] 13:20:00* Test Item Value Reference Range Interpretation Comments WHITE BLOOD CELL COUNT (BEAKER) (test code = 775) 7.0 10e3/ L 4.0- 10.0 RED BLOOD CELL COUNT (BEAKER) (test code = 761) 4.41 10e6/ L 4.00-5 .00 HEMOGLOBIN (BEAKER) (test code = 410) 13.1 g/dL 12.0-15.0 HEMATOCRIT (BEAKER) (test code = 411) 39.4 % 36.0-45.0 MEAN CORPUSCULAR VOLUME (BEAKER) (test code = 753) 89.3 fL 82. 0-99.0 MEAN CORPUSCULAR HEMOGLOBIN (BEAKER) (test code = 751) 29.7 pg 27.0-33.0 MEAN CORPUSCULAR HEMOGLOBIN CONC (BEAKER) (test code = 752) 33.3 g/dL 32.0-36.0 RED CELL DISTRIBUTION WIDTH (BEAKER) (test code = 412) 11.4 % 10.3-14.2 PLATELET COUNT (BEAKER) (test code = 756) 188 10e3/ L 150-430 MEAN PLATELET VOLUME (BEAKER) (test code = 754) 7.6 fL 6.5-10 .5 NEUTROPHILS RELATIVE PERCENT (BEAKER) (test code = 429) 59 % LYMPHOCYTES RELATIVE PERCENT (BEAKER) (test code = 430) 33 % MONOCYTES RELATIVE PERCENT (BEAKER) (test code = 431) 7 % EOSINOPHILS RELATIVE PERCENT (BEAKER) (test code = 432) 2 % BASOPHILS RELATIVE PERCENT (BEAKER) (test code = 437) 0 % NEUTROPHILS ABSOLUTE COUNT (BEAKER) (test code = 670) 4.09 10e3/ L 1.80-8.00 LYMPHOCYTES ABSOLUTE COUNT (BEAKER) (test code = 414) 2.26 10e3/ L 1.48-4.50 MONOCYTES ABSOLUTE COUNT (BEAKER) (test code = 415) 0.47 10e3/ L 0. 00-1.30 EOSINOPHILS ABSOLUTE COUNT (BEAKER) (test code = 416) 0.10 10e3/ L 0.00-0.50 BASOPHILS ABSOLUTE COUNT (BEAKER) (test code = 417) 0.02 10e3/ L 0. 00-0.20
--- OUTSIDE RECORDS SUMMARY | 2019-10-13 16:32 | XMS REPORT | Summary of Care ---
Author Author [facility] Organization [facility] Address Unknown Phone Unavailable Care Team Providers Care Plastic Bubble Packer Name Role Phone Rochelle Ventura MD PCP Unavailable Reason for Visit * Reason Comments Hair/Scalp Problem Encounter Details Care Team Description Date Type Department Nasreen Hannah MD [address] [facility] [address]th [address] [place] [address] Hair/Scalp Problem 02/25/2019 Office Visit [facility] Dermatology [address] [facility], [facility] [address] [place] [address] Allergies No Known Allergiesdocumented as of this encounter (statuses as of 02/25/2019) Medications End Date Status Medication Sig Dispensed Refills Start Date Active metformin (GLUCOPHAGE-XR) 0 500 MG XR tablet 7 Active VICTOZA 18 MG/3ML SOPN 0 7 Active aspirin 81 MG tablet Take 81 mg by 0 mouth daily. Active levothyroxine (SYNTHROID) TAKE 1 TABLET 4 100 MCG tablet BY MOUTH 8 EVERY DAY Active esomeprazole (NEXIUM) 40 TAKE 1 3 08/19 MG capsule CAPSULE BY 9 MOUTH TWICE A DAY Active conjugated estrogens 0.5gm 30 g 3 08/28 (PREMARIN) vaginal intravaginall 9 creamIndications: y q M and Menopausal vaginal Thurs for dryness vaginal dryness Active lisinopril (PRINIVIL, Take 1 Tab by 90 Tab 1 ZESTRIL) 10 MG mouth daily. 9 tabletIndications: Essential hypertension Active rosuvastatin (CRESTOR) 10 Take 1 Tab by 90 Tab 1 MG tabletIndications: mouth daily. 9 Dyslipidemia Active SSD 1 % cream Apply 1 Tube 0 topically two 9 times daily. Active meclizine (ANTIVERT) 12.5 Take 1 Tab by 30 Tab 0 MG tabletIndications: mouth 3 times 9 Benign paroxysmal daily as positional vertigo due to needed for bilateral vestibular Dizziness. disorder Active Ciclopirox (LOPROX) 1 % Apply to 120 mL 3 SHAM scalp 2-3 9 times per week when active, leave lather on for 5 min prior to rinsing Active clobetasol (TEMOVATE) Apply 50 mL 3 02/16 0.05 % external solution topically 9 twice a day as needed for itch only (this is a steroid) Active hydrocortisone 2.5 % Apply to 28.35 g 3 02/25 ointment affected area 9 twice a day as needed for rash by mouth for up to 1 week, may repeat after 3-5 day break if needed documented as of this encounter (statuses as of 02/25/2019) Active Problems Problem Noted Date Venous insufficiency 09/02/2018 FLOYD (dyspnea on exertion) 05/08/2016 HTN (hypertension) 05/08/2016 Obesity 05/08/2016 RAFAEL (obstructive sleep apnea) 05/08/2016 Elevated cholesterol with elevated triglycerides 05/1997 Hypertension 05/19/1993 Diabetes mellitus (HCCode) 05/19/1989 Arthritis Hypothyroidism Neuropathy Overview: Both legs Sleep apnea documented as of this encounter (statuses as of 02/25/2019) Immunizations Name Administration Dates Next Due Influenza (Preservative 01/17/2015 Free) Pneumococcal 13-valent 12/03/2017 Conjugate Vaccine Pneumococcal 12/10/2011, 06/13/2011 Polysaccharide Tdap 12/09/2014, 06/13/2011 Zoster Live 12/09/2014 documented as of this encounter Social History Date Tobacco Use Types Packs/Day Years Used Never Smoker Smokeless Tobacco: Never Used Drinks/Week oz/Week Comments Alcohol Use No Sex Assigned at Date Recorded Not on file Industry Job Start Date Occupation Not on file Not on file Not on file Travel End Travel History Travel Start No recent travel history available. documented as of this encounter Last Filed Vital Signs Not on filedocumented in this encounter Progress Notes * Nasreen Hannah MD - 02/25/2019 9:15 AM CDT This is a 68 y.o. HF who presents complaining of two issues Scalp is flaking and dry, has tried Ketoconazole shampoo, has not helped Tried numerous otc, still itchy Rash around mouth for months, itches, mart, uses a variety of otc balms, topica ls and neosporin but not helping O/w well, no fevers/chills no history of skin cancer PE; Well developed, well nourished Anicteric HF, alert and oriented, non anxiou s, in no acute distress Total body exam declined Focused exam scalp and perioral skin 1. Scaling faintly pink patches scalp 2. Perioral skin with erythema and mild lichenification AP: 1. [facility] Reassurance, counseling Treatment options discussed along with risks/benefits limitations of treatment discussed Loprox 2-3 times weekly clobetasol solution risks and benefits explained Patient to call if unimproved or worsened 2. ACD vs ICD vs combination Lip dermatitis handout provided hc 2.5% ointment bid prn risks and benefits explained Counseled against overuse Patient to call if unimproved or worsened rv prn documented in this encounter Plan of Treatment Care Team Description Date Type Specialty Marcia Rouse MD [address] [address] 04/23/2019 Office Visit Family Medicine Health Maintenance Due Date Last Done Comments ANNUAL DIABETIC FOOT EXAM 12/24/1969 BMI FOLLOW UP PLAN 12/24/1969 HEPATITIS C SCREENING 12/24/1969 FALL SCREEN 12/24/2016 PNEUMOVAX >=65 (PPSV23) 12/24/2016 12/10/2011, ANNUAL DIABETIC 05/19/2018 05/19/2017 RETINOPATHY SCREENING FLU VACCINE > 6 MONTHS 12/17/2018 02/10/2018, , 01/17/2015 MAMMOGRAM ANNUAL 02/04/2020 02/03/2019, 018, 09/30/2016, Additional history exists COLON CANCER SCREENIN04/14/2022 04/14/2017 COLONOSCOPY TETANUS SHOT (ADULT) 01/17/2026 01/18/2016, 12/09, 06/13/2011 PREVNAR >= 65 (PCV13) Completed 12/03/2017 OSTEOPOROSIS SCREENING Completed 12/05/2017 documented as of this encounter Results Not on filedocumented in this encounter Visit Diagnoses Diagnosis Other seborrheic dermatitis - Primary Contact dermatitis, unspecified contact dermatitis type, unspecified trigger documented in this encounter Insurance Type Payer Benefit Subscriber ID Effective Phone Address Plan / Dates Group [facility] xxxxxxxxxxx 2017-P [id number] ACCESS - [place] [phone] documented as of this encounter
--- OUTSIDE RECORDS SUMMARY | 2019-10-13 16:32 | XMS REPORT | Summary of Care ---
Author Author [facility] Organization [facility] Address Unknown Phone Unavailable Care Team Providers [employer] Name Role Phone Rochelle Ventura MD PCP Unavailable Reason for Referral * Consult, Test & Treat (Routine) Referred By Contact Referred To Contact Status Reason Specialty Diagnoses / Procedures Marcia Rouse MD [address] [address] [place] [facility] [address] [facility]. 9th Floor, [address] [place] [address] Pending Consult, Test, and Neurology Diagnoses Treat Benign paroxysmal positional vertigo due to bilateral vestibular disorder P rocedures [place] OFFICE OUTPATIENT NEW 30 MINUTES * Radiology Services (Routine) Referred By Contact Referred To Contact Status Reason Specialty Diagnoses / Procedures Marcia Rouse MD [address] [facility] [address] [place] [address] [facility] Mammo Imaging [id number] [place] [address] Pending Radiology Diagnoses Visit for screening mammogram P rocedures MAMMO SCREENING BILATERAL Reason for Visit * Reason Comments Annual Exam Mammogram Order Encounter Details Care Team Description Date Type Department Marcia Rouse MD [address] [facility] [address] [place] [address] [phone] Annual Exam; Mammogram Order 01/22/2019 Office Visit [facility] Family Medicine [address] [facility] [address] [place] [address] Allergies No Known Allergiesdocumented as of this encounter (statuses as of 01/22/2019) Medications End Date Status Medication Sig Dispensed [...] Tube 0 topically two 9 times daily. 01/22/2019 Active Zoster Vaccine Live [id number] Inject 1 Vial 1 Each 0 UNT/0.65ML into the skin 9 SOLRIndications: Need for once for 1 shingles vaccine dose. Active meclizine (ANTIVERT) 12.5 Take 1 Tab by 30 Tab 0 MG tabletIndications: mouth 3 times 9 Benign paroxysmal daily as positional vertigo due to needed for bilateral vestibular Dizziness. disorder 01/22/2019 Discontinued Fe Cbn-Fe TAKE 1 TABLET 0 [id number] BY MOUTH 8 (FERRALET 90) 90-1 MG EVERY DAY TABS 01/22/2019 Discontinued tramadol (ULTRAM) 50 MG Take 1 Tab by 40 Tab 0 tabletIndications: Chest mouth every 6 9 pain, unspecified type hours as needed for Pain. 01/22/2019 Discontinued ranitidine, ZANTAC, Take 1 Tab by 60 Tab 0 07/17 (RANITIDINE 150 MAX mouth two 9 STRENGTH) 150 MG tablet times daily. 01/22/2019 Discontinued fluconazole (DIFLUCAN) Take 1 Tab by 1 Tab 0 0 150 MG tabletIndications: mouth daily. 9 Vaginitis and vulvovaginitis 01/22/2019 Discontinued gabapentin (NEURONTIN) Take 1 Cap by 90 Cap 1 0 300 MG mouth 3 times 9 capsuleIndications: daily. Herpes zoster without complication 01/22/2019 Discontinued lidocaine (XYLOCAINE) 5 % AAA 2-3 times 1 Tube 1 ointmentIndications: a day prn 9 Herpes zoster without pain complication 01/22/2019 Discontinued ibuprofen (MOTRIN) 600 MG Take 1 Tab by 30 Tab 0 tablet mouth every 8 9 hours as needed for Pain (with food). 01/22/2019 Discontinued Diclofenac Sodium 1 % GEL Apply to 1 Tube 3 affected area 9 3 times daily. documented as of this encounter (statuses as of 01/22/2019) Active Problems Problem Noted Date Venous insufficiency 09/02/2018 FLOYD (dyspnea on exertion) 05/08/2016 HTN (hypertension) 05/08/2016 Obesity 05/08/2016 RAFAEL (obstructive sleep apnea) 05/08/2016 Elevated cholesterol with elevated triglycerides 05/1997 Hypertension 05/19/1993 Diabetes mellitus 05/19/1989 Arthritis Hypothyroidism Neuropathy Overview: Both legs Sleep apnea documented as of this encounter (statuses as of 01/22/2019) Immunizations Name Administration Dates Next Due Influenza [...] of this encounter Last Filed Vital Signs Reading Time Taken Comments Vital Sign 127/74 01/22/2019 7:34 AM CDT Blood Pressure 82 01/22/2019 7:34 AM CDT Pulse 36.9 C (98.5 F) 01/22/2019 7:34 AM CDT Temperature 16 01/22/2019 7:34 AM CDT Respiratory Rate - - Oxygen Saturation - - Inhaled Oxygen Concentration 75.8 kg (167 lb) 01/22/2019 7:34 AM CDT Weight 157.5 cm (5' 2") 01/22/2019 7:34 AM CDT Height 30.54 01/22/2019 7:34 AM CDT Body Mass Index documented in this encounter Patient Instructions * Patient Instructions* Marcia Rouse MD - 01/22/2019 7:30 AM CDT Patient Education [facility] Well Visit, Over 65: Care Instructions Your Care Instructions Physical exams can help you stay healthy. Your doctor has checked your overall h ealth and may have suggested ways to take good care of yourself. He or she also may have recommended tests. At home, you can help prevent illness with healthy e ating, regular exercise, and other steps. Follow-up care is a joseph part of your treatment and safety. Be sure to make and g o to all appointments, and call your doctor if you are having problems. It's als o a good idea to know your test results and keep a list of the medicines you gagan e. How can you care for yourself at home? Reach and stay at a healthy weight. This will lower your risk for many proble ms, such as obesity, diabetes, heart disease, and high blood pressure. Get at least 30 minutes of exercise on most days of the week. Walking is a go od choice. You also may want to do other activities, such as running, swimming, cycling, or playing tennis or team sports. Do not smoke. Smoking can make health problems worse. If you need help quitti ng, talk to your doctor about stop-smoking programs and medicines. These can inc rease your chances of quitting for good. Protect your skin from too much sun. When you're outdoors from 10 a.m. to 4 p .m., stay in the shade or cover up with clothing and a hat with a wide brim. Wea r sunglasses that block UV rays. Even when it's cloudy, put broad-spectrum sunsc reen (SPF 30 or higher) on any exposed skin. See a dentist one or two times a year for checkups and to have your teeth gonsalo aned. Wear a seat belt in the car. Limit alcohol to 2 drinks a day for men and 1 drink a day for women. Too much alcohol can cause health problems. Follow your doctor's advice about when to have certain tests. These tests can sp ot problems early. For men and women Cholesterol. Your doctor will tell you how often to have this done based on y our overall health and other things that can increase your risk for heart attack and stroke. Blood pressure. Have your blood pressure checked during a routine doctor visi t. Your doctor will tell you how often to check your blood pressure based on you r age, your blood pressure results, and other factors. Diabetes. Ask your doctor whether you should have tests for diabetes. Vision. Experts recommend that you have yearly exams for glaucoma and other a ge-related eye problems. Hearing. Tell your doctor if you notice any change in your hearing. You can h ave tests to find out how well you hear. Colon cancer tests. Keep having colon cancer tests as your doctor recommends. You can have one of several types of tests. Heart attack and stroke risk. At least every 4 to 6 years, you should have yo ur risk for heart attack and stroke assessed. Your doctor uses factors such as y our age, blood pressure, cholesterol, and whether you smoke or have diabetes to show what your risk for a heart attack or stroke is over the next 10 years. Osteoporosis. Talk to your doctor about whether you should have a bone densit y test to find out whether you have thinning bones. Also ask your doctor about w hether you should take calcium and vitamin D supplements. For women Pap test and pelvic exam. You may no longer need a Pap test. Talk with your d octor about whether to stop or continue to have Pap tests. Breast exam and mammogram. Ask how often you should have a mammogram, which i s an X-ray of your breasts. A mammogram can spot breast cancer before it can be felt and when it is easiest to treat. Thyroid disease. Talk to your doctor about whether to have your thyroid check ed as part of a regular physical exam. Women have an increased chance of a thyro id problem. For men Prostate exam. Talk to your doctor about whether you should have a blood test (called a PSA test) for prostate cancer. Experts disagree on whether men should have this test. Some experts recommend that you discuss the benefits and risks of the test with your doctor. Abdominal aortic aneurysm. Ask your doctor whether you should have a test to check for an aneurysm. You may need a test if you ever smoked or if your parent, brother, sister, or child has had an aneurysm. When should you call for help? Watch closely for changes in your health, and be sure to contact your doctor if you have any problems or symptoms that concern you. Where can you learn more? Go to [email or web address]/Blockboard/ Click on the magnifying glass tab, and enter K859 in the search box to learn ty lee about "Well Visit, Over 65: Care Instructions." Current as of: October 01, 2016 Content Version: 11.7 6152-6808 [employer]. Care instructions adapted under license b y [facility]. If you have questions about a medical condition or this instruction, always ask your healthcare professional. [employer] disclaims any warranty or liability for your use of this information. Patient Education [facility] Benign Paroxysmal Positional Vertigo (BPPV): Care Instructions Your Care Instructions Benign paroxysmal positional vertigo, also called BPPV, is an inner ear problem. It causes a spinning or whirling sensation when you move your head. This sensat ion is called vertigo. The vertigo usually lasts for less than a minute. People often have vertigo spel ls for a few days or weeks. Then the vertigo goes away. But it may come back aga in. The vertigo may be mild, or it may be bad enough to cause unsteadiness, naus ea, and vomiting. When you move, your inner ear sends messages to the brain. This helps you keep y our balance. Vertigo can happen when debris builds up in the inner ear. The buil dup can cause the inner ear to send the wrong message to the brain. Your doctor may move you in different positions to help your vertigo get better faster. This is called the Jeannine maneuver. Your doctor may also prescribe medici manda or exercises to help with your symptoms. Follow-up care is a joseph part of your treatment and safety. Be sure to make and g o to all appointments, and call your doctor if you are having problems. It's als o a good idea to know your test results and keep a list of the medicines you gagan e. How can you care for yourself at home? If your doctor suggests that you do Verdugo-Daroff exercises: ? Sit on the edge of a bed or sofa. Quickly lie down on the side that causes the worst vertigo. Lie on your side with your ear down. ? Stay in this position for at least 30 seconds or until the vertigo goes away. ? Sit up. If this causes vertigo, wait for it to stop. ? Repeat the procedure on the other side. ? Repeat this 10 times. Do these exercises 2 times a day until the vertigo is go ne. When should you call for help? Call 911 anytime you think you may need emergency care. For example, call if: You have symptoms of a stroke. These may include: ? Sudden numbness, tingling, weakness, or loss of movement in your face, arm, or leg, especially on only one side of your body. ? Sudden vision changes. ? Sudden trouble speaking. ? Sudden confusion or trouble understanding simple statements. ? Sudden problems with walking or balance. ? A sudden, severe headache that is different from past headaches. Call your doctor now or seek immediate medical care if: You have new or worse nausea and vomiting. You have new symptoms such as hearing loss or roaring in your ears. Watch closely for changes in your health, and be sure to contact your doctor i f: You are not getting better as expected. Your vertigo gets worse. Where can you learn more? Go to [email or web address]/ Click on the magnifying glass tab, and enter P372 in the search box to learn mor e about "Benign Paroxysmal Positional Vertigo (BPPV): Care Instructions." Current as of: September 27, 2016 Content Version: 11.7 5759-2241 [employer]. Care instructions adapted under license b y [facility]. If you have questions about a medical condition or this instruction, always ask your healthcare professional. [employer] disclaims any warranty or liability for your use of this information. documented in this encounter Progress Notes * Marcia Rouse MD - 01/22/2019 7:30 AM CDT - PREVENTIVE HEALTH VISIT FEMALE 65 yo and over without Medicare Reports having Shingles in September -on back -no residual neuralgias Reports dizziness after getting out of bed in the morning -Sometimes occurs when turns to quickly -going up stairs sometimes feels she is going to fall Family History Problem Relation Name Age of Onset Other Medical Problems Son Hemophilia Anemia/Blood Disorder Son Hemophilia Heart Disease Father High Blood Pressure Father Diabetes Mother Heart Disease Mother High Blood Pressure Mother Breast Cancer Mother Diabetes Other Grandmother Heart Disease Other Grandmother Weight Disorder Other Grandmother Stroke Other Granmother Diabetes Maternal Grandmother CARDIOVASCULAR DISEASE- Risk Factors: EXERCISE: moderately active BLOOD PRESSURE: BP Readings from Last 3 Encounters: 01/22/19 127/74 10/23/18 150/86 10/06/18 143/84 LIPIDS: Results for orders placed or performed in visit on 12/03/17 LIPID PANEL Result Value Ref Range CHOLESTEROL 118 <200 MG/DL TRIGLYCERIDES 106 <150 MG/DL HDL CHOLESTEROL 62 >39 MG/DL LDL CHOLESTEROL CALCULATED 35 <100 MG/DL LDL/HDL RATIO, SERUM 0.56 <3.22 RATIO GLUCOSE CONTROL: Lab Results Component Value Date HGBA1C 6.1 (H) 12/05/2017 Lab Results Component Value Date GLUCOSE 114 (H) 09/01/2018 SMOKING: Social History Tobacco Use Smoking Status Never Smoker Smokeless Tobacco Never Used ASCVD Risk: The ASCVD Risk score ([place] Jr., et al., 2013) failed to calculate for the fol lowing reasons: The valid total cholesterol range is 130 to 320 mg/dL CANCER- Screening: Breast Hx of Abnormal Mammos NO Cervical Hx of Abnormal Paps NO Colon: Abnormal Colonoscopy: NO Skin:Changing moles? NO Use sunscreen? YES INFECTIOUS DISEASE- Immunization History Administered Date(s) Administered Influenza (Preservative Free) 01/17/2015 Pneumococcal 13-valent Conjugate Vaccine 12/03/2017 Pneumococcal Polysaccharide 06/13/2011, 12/10/2011 Tdap 06/13/2011, 12/09/2014 Zoster Live 12/09/2014 Zostavax Not Done Pneumovax (PPS23) Not Done Prevnar (PCV13) Not Done Hep C screen ([id number]) Not Done 1950 (Screening NOT covered by Medicare)No results found for: HEPCAB Sexual History - 1 male partner no risky sexual behaviors METABOLIC- Osteoporosis: Weight bearing exercise: YES Calcium intake: YES MENTAL HEALTH - NO Have you been hit, kicked, punched, or otherwise hurt by someone in the past year? NO Do you feel unsafe in your current relationship? NO Is there a partner from a past relationship who is making you feel unsafe no w? No flowsheet data found. Updated on 12/03/2017: EXERCISE: Walking, 5 x a week ALCOHOL USE How often do you have a drink containing alcohol? 0 - Never How many standard drinks of alcohol do you have on a typical day you are drinki ng? 0 - 1 drink How often do you have 4/5 or more drinks on ONE occasion? 0 - Never AUDIT 1-3 US Score: 0 Scoring: Complete full AUDIT screening form and scan form into Media for the fol lowin or more in female of any age or males age over 65 y/o 8 or more in males under 65 y/o Full AUDIT US Score if applicable: N/A Last Depression screen with PHQ-9 (if applicable) Done on 12/03/2017 ACCIDENTS/TRAUMA Helmets with biking/skating n/a Smoke detectors: YES Handguns: NO Seatbelts: YES Drink and drive: NO Functional Assessment as of 12/03/2017 Is the patient independent for: Eating: Yes Bathing: Yes Dressing: Yes Ambulation: Yes Toileting: Yes Can the patient perform the following alone? Prepares own meals: Yes Uses telephone: Yes Does housework: Yes Does laundry: Yes Handles own money: Yes Takes own medications: Yes Shops for groceries: Yes Travels: Yes HEALTH MAINTENANCE Last Dentist Exam: 2017 Last Eye Exam: 2018 I have reviewed the PMH, SH, FHX, ROS, MEDS, ALLERGIES and [facility]. PHYSICAL EXAM BP 127/74 | Pulse 82 | Temp 98.5 F (36.9 C) (Oral) | Resp 16 | Ht 5' 2" (1.575 m) | Wt 167 lb (75.8 kg) | BMI 30.54 kg/m Body mass index is 30.54 kg/m.- General: 68 y.o. female well developed, well nourished and in no acute distress Head: normocephalic and atraumatic Eyes: conjunctivae/corneas clear. PERRL, EOMs intact Ears: Pinna normal, canals normal, TM are normal, hearing normal Nose: Nares normal. Septum intact. Mucosa normal. No drainage/discharge or sinu s tenderness. Mouth: No deformity or lesions, normal teethe and gums, tongue normal, salivary glands normal Throat: Lips, mucosa, and tongue normal. Teeth and gums normal Neck: supple, symmetrical, trachea midline, no adenopathy, thyroid normal Back: symmetric, no curvature. ROM normal. No CVA tenderness. Lungs: clear to auscultation bilaterally and no wheezes, rubs or rales Breasts deferred Heart: regular rate and rhythm, S1, S2 normal, no murmur, click, rub or gallop Abdomen: soft, non-tender. Bowel sounds normal. No masses, no organomegaly Pelvic: deferred Extremities: no clubbing, cyanosis, edema or deformity noted MS: symmetrical with no deformity, with normal posture and gait, normal strengt h and with normal full range of motion of all joints Pulses: 2+ and symmetric Skin: Skin color, texture, turgor normal. No rashes or lesions Lymphatic: Cervical, supraclavicular, and axillary nodes normal. Neurologic: Grossly normal; nonfocal exam Psych: alert and cooperative; normal mood and affect; normal attention span and concentration. ASSESSMENT and PLAN: Preventive Care - protocols reviewed and recommended preventive services discuss ed with the patient Isabela was seen today for annual exam and mammogram order. Diagnoses and all orders for this visit: Preventative health care Visit for screening mammogram - MAMMO SCREENING BILATERAL; Future Screening for cardiovascular condition - LIPID PANEL Screening for diabetes mellitus - COMPREHENSIVE METABOLIC PANEL Lipid screening - LIPID PANEL Hyperglycemia - HEMOGLOBIN A1C Need for shingles vaccine - Zoster Vaccine Live [id number] UNT/0.65ML SOLR; Inject 1 Vial into the skin onc e for 1 dose. Benign paroxysmal positional vertigo due to bilateral vestibular disorder - meclizine (ANTIVERT) 12.5 MG tablet; Take 1 Tab by mouth 3 times daily as needed for Dizziness. - AMB REF TO NEUROLOGY [facility] We discussed incorporating Cardiovascular Exercise into weekly routine. Recommen d 30 minutes/day, 5 days a week. Ex: running, bicycling, gym classes. The plan of care was discussed in detail with the patient today, including any l abs and medications that may be ordered. The patient is advised to contact the kirti ocasio if they have any additional concerns or questions. RTC in 1 year Marcia Rouse M.D. [employer] Department of Family and Community Medicine [facility] documented in this encounter Plan of Treatment Order Schedule Name Type Priority Associated Diag noses Ordered: 01/22/2019 COMPREHENSIVE METABOLIC Lab Routine Screen ing for diabetes PANEL mellitus Ordered: 01/22/2019 LIPID PANEL Lab Routine Screening for cardiovascular condition Lipid screening Expected: 01/22/2019, Expires: 1 MAMMO SCREENING BILATERAL Imaging Routine Visi t for screening mammogram Ordered: 01/22/2019 HEMOGLOBIN A1C Lab Routine Hyperglycemia Ordered: 01/22/2019 TSH + FREE T4 PROFILE Lab Routine Hypothyr oidism, unspecified type Order Schedule Name Type Priority Associated Diag noses Ordered: 01/22/2019 AMB REF TO NEUROLOGY Outpatient Routine Benign pa roxysmal [facility] Referral positional vertigo due to bilateral vestibular disorder Health Maintenance Due Date Last Done Comments ANNUAL DIABETIC FOOT EXAM 12/24/1969 BMI FOLLOW UP PLAN 12/24/1969 HEPATITIS C SCREENING 12/24/1969 FALL SCREEN 12/24/2016 PNEUMOVAX >=65 (PPSV23) 12/24/2016 12/10/2011, ANNUAL DIABETIC 05/19/2018 05/19/2017 RETINOPATHY SCREENING MAMMOGRAM ANNUAL 12/05/2018 12/05/2017, 017, 12/13/2013 FLU VACCINE > 6 MONTHS 12/17/2018 02/10/2018, , 01/17/2015 COLON CANCER SCREENIN04/14/2022 04/14/2017 COLONOSCOPY TETANUS SHOT (ADULT) 01/17/2026 01/18/2016, 12/09, 06/13/2011 PREVNAR >= 65 (PCV13) Completed 12/03/2017 OSTEOPOROSIS SCREENING Completed 12/05/2017 documented as of this encounter Results Not on filedocumented in this encounter Visit Diagnoses Diagnosis Preventative health care - Primary Routine general medical examination at a health care facility Visit for screening mammogram Other screening mammogram Screening for cardiovascular condition Screening for other and unspecified car diovascular conditions Screening for diabetes mellitus Lipid screening Screening for lipoid disorders Hyperglycemia Other abnormal glucose Need for shingles vaccine Need for prophylactic vaccination and i noculation against varicella Benign paroxysmal positional vertigo du e to bilateral vestibular disorder Hypothyroidism, unspecified type documented in this encounter Insurance Type Payer Benefit Subscriber ID Effective Phone Address Plan / Dates Group [facility] xxxxxxxxxxx 2017-P [address] [place] [id number] ACCESS - [place] [phone] documented as of this encounter
[2019-10-13 17:27] LABS: BILIRUBIN,URINE NEGATIVE (NEGATIVE); CLARITY,URINE TURBID (CLEAR); COLOR,URINE RED (YELLOW); KETONES,URINE TRACE (NEGATIVE); LEUKOCYTE ESTERASE ,URINE NEGATIVE (NEGATIVE); NITRITE,URINE NEGATIVE (NEGATIVE); PROTEIN,URINE DIPSTICK >=300 (NEGATIVE); URINE UROBILINOGEN 0.2 mg/dL (0.2 - 1)
[2019-10-13 17:28] LABS: BACTERIA,URINE MANY /HPF; RBC,URINE >50 /HPF (0-5)
[2019-10-13 17:32] VITALS: BP 139/72
--- NOTE | 2019-10-13 17:39 | Emergency Department Note ---
History of Present Illnes History of Present Illness Chief Complaint: Genitourinary History of Present Illness This is a 68 year old female . Historian: Patient Arrival Mode: Car Glass Sander Required: No Onset (how long ago): hour(s) (1) Quality: bladder pressure Radiation: non-radiation Severity: mild Onset quality: sudden Duration (how long): hour(s) (1) Chronicity: new Relieving factors: none Exacerbating factors: none Associated symptoms: denies other symptoms Treatments prior to arrival: none Past Medical/Family History Physician Review I have reviewed the patient's past medical and family history. Any updates have been documented here. Past Medical History Recent Fever: No Clinical Suspicion of Infectio: Yes New/Unexplained Change in Ment: No Past Medical History: Hypertension, Diabetes, Hyperlipedemia Other Medical History: CHRONIC BACK PAIN GERD Past Surgical History: Cholecysctectomy, Hysterectomy Other Surgery: L4-L5 FUSION RIGHT KNEE TEAR SX BILATERAL CARPAL TUNNEL SX X2 GASRTIC SEELVE Social History Counseling Performed: No Alcohol Use: None Any Illegal Drug Use: No TB Exposure/Symptoms: No Physically hurt or threatened: No Family History Family history of heart diseas: Yes Other Last Tetanus: UTD Any Pre-Existing Lines (PICC,: No Is patient up to date on immun: No Review of Systems ROS Narrative Patient is a 68 year old female that presents with "bladder pressure " . Patient states that sx started 1 hour ago when she was voiding, noticed pressure with some pain and blood. Patient denies CP, SOB, abd pain or any other issues Review of Systems Constitutional: no symptoms EENTM: no symptoms Cardiovascular: no symptoms Respiratory: no symptoms Gastrointestinal: no symptoms Genitourinary: dysuria (pressure) Musculoskeletal: no symptoms Neurological: no symptoms Psychological: no symptoms Endocrine: no symptoms Hematological/Lymphatic: no symptoms Review of other systems All other systems reviewed and negative. Physical Exam Related Data Allergies: Coded Allergies: No Known Allergies (Unverified , 05/27/15) Triage Vital Signs Vital Signs Date Time Temp Pulse Resp B/P (MAP) Pulse Ox O2 Delivery O2 Flow Rate FiO2 10/13/19 16:32 97.0 83 18 139/72 96 Vital signs reviewed: Yes Physical Exam CONSTITUTIONAL Constitutional: well-developed, well-nourished HENT HENT: normocephalic, atraumatic, oropharynx clear/moist, nose normal HENT L/R: left ext ear normal, right ext ear normal EYES Eyes: PERRL, conjunctivae normal NECK Neck: ROM normal PULMONARY Pulmonary: effort normal, breath sounds normal CARDIOVASCULAR Cardiovascular: regular rhythm, heart sounds normal, capillary refill normal, normal rate GASTROINTESTINAL Abdominal: soft, nontender, bowel sounds normal GENITOURINARY Genitourinary: exam deferred SKIN Skin: warm, dry MUSCULOSKELETAL Musculoskeletal: ROM normal NEUROLOGICAL Neurological: alert, oriented x 3, no gross motor or sensory deficits PSYCHOLOGICAL Psychological: mood/affect normal, judgement normal Results Laboratory Lab results reviewed: Yes Critical Care Time Subsequent provider I assumed direction of critical care for this patient from another provider of my specialty. Assessment & Plan Reassessment Reassessment time: 17:37 Reassessment Discussed results with patient along with treatment plan Assessment & Plan Final Impression: (1) UTI (urinary tract infection) Assessment & Plan UA ordered to R/O UTI IM ABX ordered Dr Sams also assessed patient and agrees with treatment plan Depart Disposition: HOME, SELF-CARE Last Vital Signs Date Time Temp Pulse Resp B/P (MAP) Pulse Ox O2 Delivery O2 Flow Rate FiO2 10/13/19 16:32 97.0 83 18 139/72 96 Home Meds Active Scripts Calcium Carbonate/Simethicone (MAALOX ADVANCED TAB CHEW) 1 Each Tab.chew, 1 TAB PO BID for 30 Days, #60 Prov:RUDI CALVILLO, 08/01/18 Famotidine (FAMOTIDINE) 20 Mg Tab, 20 MG PO DAILY for 30 Days, #30 TAB Prov:RUDI CALVILLO DO 08/01/18 Reported Medications Insulin Glargine (LANTUS) 100 Units/Ml Ml, 10 UNITS SQ HS 05/29/16 Insulin Human Isophan/Regular (NOVOLIN 70-30 100 UNIT/ML VIAL) 100 Units/Ml Ml, 5-8 UNITS SQ AC 05/29/16 Ropinirole Hcl (ROPINIROLE HCL) 0.25 Mg Tablet, #90 TAB 05/29/16 Lisinopril (PRINAVIL / ZESTRIL) 20 Mg Tablet, 40 MG PO DAILY 05/29/16 Rosuvastatin Calcium (CRESTOR) 10 Mg Tab, 10 MG PO DAILY THERAPEUTICALLY SUBSTITUTED WITH SIMVASTATIN 40MG 05/29/16 Metoprolol Succinate (METOPROLOL SUCCINATE) 25 Mg Tab.er.24h, 25 MG PO DAILY 05/29/16 Pantoprazole Sodium* (PROTONIX) 40 Mg Tablet.dr, 40 MG PO DAILY, TAB 05/29/16 Aspirin (ASPIR 81) 81 Mg Tablet.dr, 81 MG PO DAILY 05/29/16 Levothyroxine Sodium (SYNTHROID) 125 Mcg Tab, 125 MCG PO 0630, #30 TAB 05/29/16 Medications in the ED rocephin 1G IM MG CARUSO NP October 13, 2019 16:39
[2019-10-13] MEDS ORDERED: CEFTRIAXONE SOD 1 GM/NS 50 ML 50 ML IV ONE (17:45)
[2019-10-13] MEDS ORDERED: CEFTRIAXONE SOD 1 GM VIAL IM ONE (17:45)
== END 2019-10-13 17:57 | disposition home or self-care (01) ==
LOC: ER 16:28
DX: R10.30 Lower abdominal pain, unspecified (principal); N39.0 Urinary tract infection, site not specified; R31.9 Hematuria, unspecified; I10 Essential (primary) hypertension; E11.9 Type 2 diabetes mellitus without complications; E78.5 Hyperlipidemia, unspecified; K21.9 Gastro-esophageal reflux disease without esophagitis; Z98.84 Bariatric surgery status
CPT/HCPCS: 81001; 87086; 99283; J0696

== ENCOUNTER 2021-05-31 22:35 | Emergency (ER) | payer OTHER ==
[~2021-05-31] VITALS: Ht 154.9 cm; Wt 72.6 kg
[2021-05-31] MEDS ORDERED: SODIUM CHLORIDE 0.9% 1000ML 1,000 ML IV STA (22:40)
[2021-05-31] MEDS ORDERED: ASPIRIN 81 MG CHEW TAB PO STA (22:40)
[2021-05-31] MEDS ORDERED: ONDANSETRON HCL INJ 2MG/ML 2ML 2 MG/ML VIAL IV STA (22:40)
[2021-05-31] MEDS: LORAZEPAM INJ 2 MG/ML VIAL IV ONE (22:45)
[2021-05-31] MEDS ORDERED: DEXAMETHASONE 10MG/ML PF INJ IV ONE (22:45)
[2021-05-31] MEDS ORDERED: CEFTRIAXONE 1 GM in SODIUM CHLORIDE 0.9% 50ML 50 ML IV ONE (22:45)
[2021-05-31] MEDS ORDERED: AMMONIA AROMATIC INHAL 0.33 ML AMP INH ONE (22:49)
[2021-05-31 23:07] LABS: BASOPHILS # (AUTO) 0.1 (0.0-0.1); BASOPHILS % 0.6 % (0.0-1.0); EOSINOPHILS # (AUTO) 0.1 (0.0-0.4); EOSINOPHILS % 0.6 % (0.0-6.0); HEMATOCRIT 41.1 % (34.2-44.1); LYMPHOCYTES % 22.1 % (18.0-39.1); MEAN CORPUSCULAR HEMOGLOBIN 29.3 pg (28-32); MEAN CORPUSCULAR HGB CONC 31.6 g/dL (31-35); MEAN CORPUSCULAR VOLUME 92.6 fL (81-99); MONOCYTES # (AUTO) 0.8 (0.2-0.8); MONOCYTES % 6.1 % (4.4-11.3); NEUTROPHILS # (AUTO) 9.4 (2.1-6.9); NEUTROPHILS % 70.2 % (38.7-80.0); PLATELET COUNT 256 x10e3/uL (140-360); RED BLOOD COUNT 4.44 x10e6/uL (3.6-5.1)
[2021-05-31 23:25] LABS: ALBUMIN 4.4 g/dL (3.5-5.0); ALBUMIN/GLOBULIN RATIO 1.3 (0.8-2.0); ANION GAP 14.4 mmol/L (8-16); CALCIUM 9.4 mg/dL (8.4-10.2); CREATININE, SERUM 0.95 mg/dL (0.57-1.11); POTASSIUM 3.4 mmol/L (3.5-5.1)
[2021-05-31 23:32] LABS: CREATINE KINASE MB 2.5 ng/mL (0-5.0)
[2021-06-01] MEDS ORDERED: MEDROL4 MG PO (00:28)
[2021-06-01] MEDS ORDERED: VENTOLIN HFA18 GM INH (00:28)
[2021-06-01] MEDS: LORAZEPAM INJ 2 MG/ML VIAL IV ONE (00:43)
[2021-06-01 03:46] VITALS: BP 129/84
== END 2021-06-01 02:10 | disposition home or self-care (01) ==
LOC: ER 22:42
DX: U07.1 COVID-19 (principal); R05.9 Cough, unspecified; F41.0 Panic disorder [episodic paroxysmal anxiety]; E11.65 Type 2 diabetes mellitus with hyperglycemia; I10 Essential (primary) hypertension; E78.5 Hyperlipidemia, unspecified; K21.9 Gastro-esophageal reflux disease without esophagitis; M54.9 Dorsalgia, unspecified; G89.29 Other chronic pain
CPT/HCPCS: 36415; 71045; 80053; 82550; 82553; 83880; 84484; 85025; 99284; J0456; J0696; J2405; J7030; J7050; J2060

== ENCOUNTER 2023-12-08 18:25 | Emergency (ER) | payer MEDICARE, OTHER ==
[~2023-12-08] VITALS: Ht 157.5 cm; Wt 64.0 kg
[~2023-12-08 18:25] MED LIST changes: +MEDROL4 MG PO; +VENTOLIN HFA18 GM INH
[2023-12-08] MEDS ORDERED: MOUNJARO12.5 MG/0. (19:56)
[2023-12-08] MEDS ORDERED: NEXIUM40 MG PO (19:56)
[2023-12-08] MEDS ORDERED: KETOCONAZOLE15 GM TOP (19:56)
[2023-12-08] MEDS ORDERED: FARXIGA10 MG (19:56)
[2023-12-08] MEDS ORDERED: LISINOPRIL10 MG PO (19:56)
[2023-12-08] MEDS ORDERED: BETAMETHASONE D15 G2 (19:56)
[2023-12-08] MEDS: SODIUM CHLORIDE 0.9% 1000ML 1,000 ML IV STA (21:15)
[2023-12-08] MEDS: KETOROLAC TROMETHAMINE 30 MG/ML VIAL IV STA (21:16)
[2023-12-08] MEDS ORDERED: IOPAMIDOL 370 MG/ML 100 ML INFUS..BTL INJ ONE (21:26)
[2023-12-09] VITALS: PULSE 75; RESP 16; TEMP 98.6; O2SAT 98
[2023-12-09] MEDS ORDERED: LEVOFLOXACIN750 MG PO (00:08)
[2023-12-09] MEDS ORDERED: KETOROLAC TROME10 MG PO (00:09)
[2023-12-09] MEDS: LEVOFLOXACIN 500 MG TAB PO ONE (00:21)
== END 2023-12-09 00:30 | disposition home or self-care (01) ==
LOC: FSED 18:34
DX: R09.1 Pleurisy (principal); R91.8 Other nonspecific abnormal finding of lung field; E11.9 Type 2 diabetes mellitus without complications; D64.9 Anemia, unspecified; I10 Essential (primary) hypertension; E78.5 Hyperlipidemia, unspecified; E03.9 Hypothyroidism, unspecified; K21.9 Gastro-esophageal reflux disease without esophagitis; F41.9 Anxiety disorder, unspecified; Z98.84 Bariatric surgery status
CPT/HCPCS: 71260; 80048; 80076; 81003; 82553; 83880; 84484; 85025; 85379; 93005; 99284; J1885; J7030; Q9967

== ENCOUNTER 2023-12-26 07:30 | Emergency (ER) | payer MEDICARE ==
[~2023-12-26] VITALS: Ht 157.5 cm; Wt 62.6 kg
[~2023-12-26 07:30] MED LIST changes: +BETAMETHASONE D15 G2; +FARXIGA10 MG; +KETOCONAZOLE15 GM TOP; +KETOROLAC TROME10 MG PO; +LEVOFLOXACIN750 MG PO; +LISINOPRIL10 MG PO; +MOUNJARO12.5 MG/0.; +NEXIUM40 MG PO
[2023-12-26] MEDS: SODIUM CHLORIDE 0.9% 1000ML 1,000 ML IV ONE (08:10)
[2023-12-26] MEDS: KETOROLAC TROMETHAMINE 30 MG/ML VIAL IV STA (08:11)
[2023-12-26 09:18] VITALS: PULSE 88; RESP 18; TEMP 98.1; O2SAT 97
== END 2023-12-26 09:30 | disposition home or self-care (01) ==
LOC: FSED 07:33
DX: R05.9 Cough, unspecified (principal); U07.1 COVID-19; R07.89 Other chest pain; R51.9 Headache, unspecified; R11.0 Nausea; I10 Essential (primary) hypertension; E11.9 Type 2 diabetes mellitus without complications
CPT/HCPCS: 0223U; 71046; 80048; 83880; 84484; 85025; 85379; 87400; 93005; 99283; J1885; J7030